=== PATIENT | male | born 1935 | race Caucasian/White ===

== ENCOUNTER 2018-12-25 04:07 | Observation (INO) ==
--- NOTE | 2018-12-25 04:23 | Emergency Department Note ---
Disposition Clinical Impression: Chest pain Qualifiers: Chest pain type: unspecified Qualified Code(s): R07.9 - Chest pain, unspecified Disposition: Admitted As Inpatient Condition: Good Referrals: Ritu Phillips DO [Primary Care Provider] - Forms: ED Satisfaction Letter Time of Disposition: 06:18 Chest Pain HPI - General Chief Complaint: ED Chest Pain Stated Complaint: chest pain Time Seen by Provider: 12/25/18 04:20 Source: patient, EMS Limitations: no limitations Vital Signs Reviewed: Yes Nursing Notes Reviewed: Yes - History of Present Illness Pt complaint: chest pain Onset (ago): Just [employer] Duration: other (improving) Onset: during rest ("trying to sleep") Pain Location: left chest Severity scale (1-10): 2 Quality: aching Pain Radiation: LUE, jaw/teeth Improves with: nitroglycerin Worsens with: nothing (Start on or bladder UA was present as chest pain is pain- free after tonight immediately to 1 is a wheezy) Associated symptoms: Reports: nausea, dyspnea. Denies: vomiting, diaphoresis Treatments prior to arrival chest pain: aspirin (at home), nitroglycerin (x2 via squad) - Related Data Home Medications Medication Instructions Recorded Confirmed Aspirin 325 mg PO DAILY 11/24/15 12/25/18 Losartan 50 mg PO DAILY 11/24/15 12/25/18 Clopidogrel 75 mg PO DAILY 02/26/18 12/25/18 Diltiazem 240 mg DAILY 02/26/18 12/25/18 Metoprolol 25 mg PO DAILY 02/26/18 12/25/18 Previous Rx's Medication Instructions Recorded Benzonatate [Tessalon] 100 mg PO TID #15 capsule 02/26/18 Cephalexin [Keflex] 500 mg PO TID #30 capsule 02/26/18 PredniSONE [Deltasone] 20 mg PO DAILY #12 tablet 02/26/18 Allergies Allergy/AdvReac Type Severity Reaction Status Date / Time No Known Allergies Allergy Verified 11/24/15 13:56 All systems ED: reviewed and negative except as stated. Review of Systems: As Per HPI Constitutional: Denies: fever, chills, weakness ENT ED: Denies: throat pain Cardiovascular: Reports: as per HPI Respiratory: Reports: cough, sputum production. Denies: wheezes, hemoptysis Gastrointestinal: Reports: as per HPI. Denies: abdominal pain Genitourinary: Denies: dysuria Musculoskeletal: Denies: back pain Integumentary: Denies: rash Neurological: Denies: weakness Endocrine: Denies: fatigue Hematological/Lymphatic: Denies: easy bleeding, lymphadenopathy Chest Pain PMH - Past Medical History Medical history: Reports: non-contributory, hyperlipidemia, hypertension Psychiatric history: Reports: no psych history - Social History Smoking Status: Current every day smoker Alcohol use: Reports: none Drug use: Reports: none Physical Exam - General Limitations: no limitations General appearance: alert, in no apparent distress - Head Head exam: atraumatic, normocephalic - Eye Eye exam: Present: EOMI - ENT ENT exam: mucous membranes moist - Neck Neck exam: Present: full ROM - Chest Chest inspection: Present: symmetric chest wall rise - Respiratory Respiratory exam: Present: wheezes. Absent: respiratory distress, accessory muscle use - Expanded Respiratory Exam Location: wheezes: Left, Right - Cardiovascular Cardiovascular exam: Present: regular rate - Abdominal Exam Abdominal exam: Present: soft, Non-Tender - Extremities Exam Extremities exam: Present: normal inspection, full ROM, normal capillary refill - Back Exam Back exam: Present: full ROM - Neurological Exam Neurological exam: Present: alert - Psychiatric Psychiatric exam: Present: normal affect, normal mood - Skin Skin exam: Present: warm, dry, intact, normal color. Absent: rash, cyanosis, diaphoresis Course Course Narrative: 83-year-old male smoker with known history of COPD who arrives via squad with complaint of chest pain and shortness of breath. He states that he was attempting to sleep and had worsened. He does describe having similar pain at night for the past month, but states that it is normally relieved after an aspirin in this had not. Does describe pain radiating into his left upper extremity and does drop. He did take an aspirin at home, and did receive nitroglycerin via squad and he now states that his pain has improved. He does describe some mild nausea earlier when the pain was occurring but he denies any vomiting. He describes an intermittent chronic cough and sputum production denies any worsening shortness of breath, worsening cough, fever, abdominal pain, leg swelling. Pt declines analgesics. Pt took 325mg ASA at home. Vitals within normal limits. EKG reviewed and compared to previous EKG in 2012, shows no acute changes. Pt on metoprolol diltiazem, describes irregular HR in the past, but currently HRRR. - Reevaluation(s) Reevaluation #1: Pt remains stable and pain free. CXR has some mild pulmonary vascular congestion, normal troponin, and blood work at his his base line. Pt discussed with attending Dr. Man who agreed with work up and disposition. Will plan for admission for ACS rule out. Time: 05:38 Reevaluation #2: Patient discussed with and accepted by hospitalist Dr. Zhong Time: 06:10 Vital Signs Temperature 97.9 F 12/25/18 04:09 Pulse Rate 71 12/25/18 04:09 Respiratory Rate 16 12/25/18 04:09 Blood Pressure 172/87 12/25/18 04:09 O2 Sat by Pulse Oximetry 96 12/25/18 04:09 Temperature 97.9 F 12/25/18 04:09 Pulse Rate 62 12/25/18 04:56 Respiratory Rate 17 12/25/18 04:56 Blood Pressure 160/76 12/25/18 04:56 O2 Sat by Pulse Oximetry 95 12/25/18 04:56 Oxygen Delivery Oxygen Delivery Room Air Chest Pain - MDM Narrative Medical decision making narrative: Chest X-Ray 12/25/18 04:20 IMPRESSION: 1. Mild pulmonary vascular congestion, slightly increased. D/ / Valdo Roberts MD / Valdo Roberts MD Interpreting Provider: Valdo Roberts MD Laboratory Tests 12/25/18 12/25/18 04:30 04:30 WBC 6.4 RBC 3.98 L Hgb 11.4 L Hct 33.5 L MCV 84.2 MCH 28.6 MCHC 34.0 RDW 16.0 H Plt Count 149 MPV 8.9 L Immature Gran % 0.5 Seg Neutrophils % 58.3 Lymphocytes % 26.9 Monocytes % 10.1 Eosinophils % 3.3 Basophils % 0.9 Neutrophils # 3.8 Lymphocytes # 1.7 Monocytes # 0.7 Eosinophils # 0.2 Basophils # 0.1 Sodium 130 L Potassium 4.3 Chloride 98 Carbon Dioxide 27 BUN 15 Creatinine 0.98 Est GFR ( Amer) > 60 Est GFR (Non-Af Amer) > 60 BUN/Creatinine Ratio 15 Glucose 115 H Calculated Osmolality 272 L Calcium 8.6 Troponin I 0.03 - Medical Records Medical records reviewed: Yes I reviewed the patient's medical records. - Lab Data Lab results reviewed: Yes I reviewed the patient's lab results. Result diagrams: 12/25/18 04:30 12/25/18 04:30 Lab Results 12/25/18 12/25/18 Range/Units 04:30 04:30 WBC 6.4 (4.3-11.1) K/mcL RBC 3.98 L (4.19-5.50) M/mcL Hgb 11.4 L (12.9-16.9) g/dL Hct 33.5 L (37.5-50.1) % MCV 84.2 (83.0-100.0) fL MCH 28.6 (28.0-33.3) pg MCHC 34.0 (31.6-35.5) g/dL RDW 16.0 H (11.5-14.5) % Plt Count 149 (140-400) K/mcL MPV 8.9 L (9.4-12.4) fL Immature Gran % 0.5 (0-4) % Seg Neutrophils % 58.3 % Lymphocytes % 26.9 % Monocytes % 10.1 % Eosinophils % 3.3 % Basophils % 0.9 % Neutrophils # 3.8 (1.6-8.9) K/mcL Lymphocytes # 1.7 (0.6-4.6) K/mcL Monocytes # 0.7 (0.0-1.3) K/mcL Eosinophils # 0.2 (0.0-0.6) K/mcL Basophils # 0.1 (0.0-0.2) K/mcL Sodium 130 L (136-145) mEq/L Potassium 4.3 (3.5-5.1) mEq/L Chloride 98 (98-107) mEq/L Carbon Dioxide 27 (23-29) mEq/L BUN 15 (8-23) mg/dL Creatinine 0.98 (0.70-1.30) mg/dL Est GFR ( Amer) > 60 (> 60) Est GFR (Non-Af Amer) > 60 (> 60) BUN/Creatinine Ratio 15 (6-26) Glucose 115 H (70-105) mg/dL Calculated Osmolality 272 L (280-300) Calcium 8.6 (8.6-10.3) mg/dL Troponin I 0.03 (< 0.04) ng/mL - Radiology Data Radiology results reviewed: Yes I reviewed the patient's radiology results. - EKG Data EKG attestation: Yes I reviewed and interpreted this EKG. EKG shows normal: sinus rhythm Rate: normal Rhythm: NSR [place]/QRS: normal When compared to previous EKG there are: no significant changes Interpretation: no acute changes, unchanged when compared to prior tracing (date) (10/15/2011) Heart Score - Score History: Moderately Suspicious EKG: Normal Age: Greater than 65 Risk Factors: Equal/Greater than 3 risk factor or history of atherosclerotic disease Troponin: Less than normal limit HEART Score Total: 5
--- NOTE | 2018-12-25 04:46 | Emergency Department Note ---
Disposition Clinical Impression: Chest pain Qualifiers: Chest pain type: unspecified Qualified Code(s): R07.9 - Chest pain, unspecified Disposition: Admitted As Inpatient Condition: Good Time of Disposition: 06:18 General Adult HPI - General Chief complaint: ED Chest Pain Stated complaint: chest pain Time Seen by Provider: 12/25/18 04:20 Source: patient, EMS Limitations: no limitations Nursing Notes Reviewed: Yes Vital Signs Reviewed: Yes - History of Present Illness Pain Scale: 2 - Related Data Home Medications Medication Instructions Recorded Confirmed Aspirin 325 mg PO DAILY 11/24/15 12/25/18 Losartan 50 mg PO DAILY 11/24/15 12/25/18 Clopidogrel 75 mg PO DAILY 02/26/18 12/25/18 Diltiazem 240 mg DAILY 02/26/18 12/25/18 Metoprolol 25 mg PO DAILY 02/26/18 12/25/18 Previous Rx's Medication Instructions Recorded Benzonatate [Tessalon] 100 mg PO TID #15 capsule 02/26/18 Cephalexin [Keflex] 500 mg PO TID #30 capsule 02/26/18 PredniSONE [Deltasone] 20 mg PO DAILY #12 tablet 02/26/18 Allergies Allergy/AdvReac Type Severity Reaction Status Date / Time No Known Allergies Allergy Verified 11/24/15 13:56 Constitutional: Denies: fever, chills, weakness ENT ED: Denies: throat pain Cardiovascular: Reports: as per HPI Respiratory: Reports: cough, sputum production. Denies: wheezes, hemoptysis Gastrointestinal: Reports: as per HPI. Denies: abdominal pain Genitourinary: Denies: dysuria Musculoskeletal: Denies: back pain Integumentary: Denies: rash Neurological: Denies: weakness Endocrine: Denies: fatigue Hematological/Lymphatic: Denies: easy bleeding, lymphadenopathy Past Medical History - Past Medical History Medical history: Reports: non-contributory, hyperlipidemia, hypertension Psychiatric history: Reports: no psych history - Social History Smoking Status: Current every day smoker Smokeless Tobacco Status: No Alcohol use: Reports: none Drug use: Reports: none Physical Exam - General Limitations: no limitations General appearance: alert, in no apparent distress Course Vital Signs Temperature 97.9 F 12/25/18 04:09 Pulse Rate 71 12/25/18 04:09 Respiratory Rate 16 12/25/18 04:09 Blood Pressure 172/87 12/25/18 04:09 O2 Sat by Pulse Oximetry 96 12/25/18 04:09 Temperature 97.9 F 12/25/18 04:09 Pulse Rate 62 12/25/18 04:56 Respiratory Rate 17 12/25/18 04:56 Blood Pressure 160/76 12/25/18 04:56 O2 Sat by Pulse Oximetry 95 12/25/18 04:56 Oxygen Delivery Oxygen Delivery Room Air Medical Decision Making - Medical Records Medical records reviewed: Yes I reviewed the patient's medical records. - Lab Data Lab results reviewed: Yes I reviewed the patient's lab results. Result diagrams: 12/25/18 04:30 12/25/18 04:30 Lab Results 12/25/18 12/25/18 Range/Units 04:30 04:30 WBC 6.4 (4.3-11.1) K/mcL RBC 3.98 L (4.19-5.50) M/mcL Hgb 11.4 L (12.9-16.9) g/dL Hct 33.5 L (37.5-50.1) % MCV 84.2 (83.0-100.0) fL MCH 28.6 (28.0-33.3) pg MCHC 34.0 (31.6-35.5) g/dL RDW 16.0 H (11.5-14.5) % Plt Count 149 (140-400) K/mcL MPV 8.9 L (9.4-12.4) fL Immature Gran % 0.5 (0-4) % Seg Neutrophils % 58.3 % Lymphocytes % 26.9 % Monocytes % 10.1 % Eosinophils % 3.3 % Basophils % 0.9 % Neutrophils # 3.8 (1.6-8.9) K/mcL Lymphocytes # 1.7 (0.6-4.6) K/mcL Monocytes # 0.7 (0.0-1.3) K/mcL Eosinophils # 0.2 (0.0-0.6) K/mcL Basophils # 0.1 (0.0-0.2) K/mcL Sodium 130 L (136-145) mEq/L Potassium 4.3 (3.5-5.1) mEq/L Chloride 98 (98-107) mEq/L Carbon Dioxide 27 (23-29) mEq/L BUN 15 (8-23) mg/dL Creatinine 0.98 (0.70-1.30) mg/dL Est GFR ( Amer) > 60 (> 60) Est GFR (Non-Af Amer) > 60 (> 60) BUN/Creatinine Ratio 15 (6-26) Glucose 115 H (70-105) mg/dL Calculated Osmolality 272 L (280-300) Calcium 8.6 (8.6-10.3) mg/dL Troponin I 0.03 (< 0.04) ng/mL - Radiology Data Radiology results reviewed: Yes I reviewed the patient's radiology results. Chest X-Ray 12/25/18 04:20 IMPRESSION: 1. Mild pulmonary vascular congestion, slightly increased. D/ / Valdo Roberts MD / Valdo Roberts MD Interpreting Provider: Valdo Roberts MD - EKG Data EKG #1 EKG attestation: Yes I reviewed and interpreted this EKG. EKG results narrative: EKG shows a normal sinus rhythm with ventricular rate is 73. No ST segment elevation. Mild ST segment depression in V3 through V5 which was also present on old EKG dated 12. No acute ischemic changes noted. No arrhythmia or ectopy. Attestation Statement - Attestation Attestation: I, Mukesh Man MD, personally evaluated this patient and discussed their management with the midlevel provicer, PAC/OUTCOMES MANAGER. I reviewed the midlevel provider's note and agree with the documented findings, medical decision making, and plan of care. 83-year-old male presents to the emergency department by EMS with a complaint of having intermittent left arm pains for the past month. He states it seems to be worse during the night. He usually takes an aspirin and gets up and drink some coffee and it goes away. The pain started tonight about midnight however tonight it radiated into the left chest. It did seem to be worse than usual and it was not relieved like usual. He was given 2 nitroglycerin per EMS with significant relief of the discomfort. He denies shortness of breath. No diaphoresis. He did have some nausea but no vomiting. No palpitations. No dizziness or syncope. 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 He also has history of a coronary artery stent. He took aspirin 325 mg at home. On examination patient is a well-developed well-nourished well-appearing elderly male in no acute distress. He is alert and oriented 3. There is no cyanosis or diaphoresis. Chest is nontender to palpation. Breath sounds are decreased bilaterally with some scattered expiratory wheezes, worse on the left. No rales noted. Heart regular rate and rhythm. Abdomen soft and nontender with normal bowel sounds. No pedal edema. EKG shows a normal sinus rhythm with ventricular rate is 73. No ST segment elevation. Mild ST segment depression in V3 through V5 which was also present on old EKG dated . No acute ischemic changes noted. No arrhythmia o r ectopy. Chest x-ray shows mild pulmonary vascular congestion. Labs reviewed. Troponin negative. The hospitalist, Dr. Zhong, was consulted and accepted admission of the patient.
[2018-12-25 04:49] LABS: Basophils # 0.1 K/mcL (0.0-0.2); Basophils % 0.9 %; Eosinophils # 0.2 K/mcL (0.0-0.6); Eosinophils % 3.3 %; Hematocrit 33.5 % (37.5-50.1); Hemoglobin 11.4 g/dL (12.9-16.9); Immature Granulocytes % 0.5 % (0-4); Lymphocytes # 1.7 K/mcL (0.6-4.6); Lymphocytes % 26.9 %; Mean Corpuscular Hemoglobin 28.6 pg (28.0-33.3); Mean Corpuscular Volume 84.2 fL (83.0-100.0); Mean Platelet Volume 8.9 fL (9.4-12.4); Monocytes # 0.7 K/mcL (0.0-1.3); Monocytes % 10.1 %; Neutrophils # 3.8 K/mcL (1.6-8.9); Platelet Count 149 K/mcL (140-400); Red Blood Count 3.98 M/mcL (4.19-5.50); Segmented Neutrophils % 58.3 %
[2018-12-25 05:07] LABS: BUN/Creatinine Ratio 15 (6-26); Blood Urea Nitrogen 15 mg/dL (8-23); Calcium 8.6 mg/dL (8.6-10.3); Carbon Dioxide 27 mEq/L (23-29); Chloride 98 mEq/L (98-107); Glucose 115 mg/dL (70-105); Osmolality,Calculated 272 (280-300); Potassium 4.3 mEq/L (3.5-5.1); Sodium 130 mEq/L (136-145); eGFR For Non-African Americans > 60 (> 60)
[2018-12-25 05:09] LABS: Troponin I 0.03 ng/mL (< 0.04)
--- NOTE | 2018-12-25 07:33 | Internal Med History&Physical ---
<Rei Llanes - Last Filed: 12/25/18 08:51> Date of Encounter: 12/25/18 Time of Encounter: 07:33 Internal Medicine - H&P: HPI Chief complaint: Chest pain Admitted From: Emergency Dept History of present illness: Mr. Ram is a 83 year old male with past medical history of hypertension, hyperlipidemia, tobacco dependence, PAD, and CAD status post cardiac stents and CABG who presented to the ED complaining of left-sided chest pain radiating to his left upper extremity at rest. Chest pain is a dull pressure-like sensation waxing and waning in severity during the past couple of weeks. Nothing makes his chest pain better or worse. Patient had associated nausea upon this morning upon awakening this morning which caused him to come to the ED. He denies associated fever, chills, diaphoresis, shortness of breath, cough, vomiting, diarrhea, leg edema, or recent illness. Patient reports compliance with his Aspirin and Plavix. 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 In the ED, CXR revealed mild pulmonary vascular congestion. Initial serum troponin was negative and EKG revealed Heart rate 73, normal axis, lateral lead ST depressions greatest in V4. Previous EKG from [address] depression in V4 and V5. Prior cardiac testing: [facility] October of 2011 showed LV ejection fraction of 40% with moderate to severe in ferobasal hypokinesis. 100% proximal LAD, 100% proximal circumflex and 100% mid RCA occlusions. HOFFMAN to LAD was patent, SVG to OM1 was occluded, SVG to first diagonal was patent, SVG to RCA was occluded with a thrombus and was felt to be the culprit vessel. The SVG to RCA was then stented with a drug-eluting stent. Past Med Surg Social Fam HX - Past Medical History Medical history: arthritis, cancer (Prostate), hyperlipidemia, hypertension Additional medical history: Borderline anemia Psychiatric history: no psych history - Past Surgical History Surgical History: angioplasty/stent, coronary bypass (CABG) (2000) - Social History Smoking Status: Current every day smoker Smokeless Tobacco Status: No Alcohol use: none Drug use: none Current living situation: Home, With Family - Family History Mother Living Status: Hx Family Neurologic Disorders: Yes (Alzheimer's Dementia) Father Living Status: Hx Family Cardiac Disorders: Yes (Hypertension) Internal Medicine - H&P: Meds Aspirin 325 mg PO DAILY 12/25/18 [History] Atorvastatin Calcium [Lipitor] 20 mg PO QPM 12/25/18 [History] Clopidogrel [Plavix] 75 mg PO DAILY 12/25/18 [History] Losartan Potassium 50 mg PO DAILY 12/25/18 [History] Metoprolol Succinate [Toprol Xl] 25 mg PO DAILY 12/25/18 [History] dilTIAZem HCl [Diltiazem ER] 240 mg PO DAILY 12/25/18 [History] Allergy/AdvReac Type Severity Reaction Status Date / Time No Known Allergies Allergy Verified 11/24/15 13:56 All Systems PM: A 10-system review of systems was performed and is negative for pertinent findings except as documented above in the HPI. - Constitutional Constitutional: no chills, no fever(s), no weakness - EENT Eyes: no blurry vision, no diplopia Nose, mouth and throat: no sinus pain, no sore throat - Cardiovascular Cardiovascular ROS IM: chest pain, no dyspnea, no dyspnea on exertion, no edema, no irregular heart rhythm, no orthopnea, no palpitations, no syncope - Respiratory Respiratory: no cough, no wheezing, no chest congestion - Gastrointestinal Gastrointestinal: nausea, no abdominal pain, no diarrhea, no vomiting - Genitourinary Genitourinary ROS male: no urinary frequency, no urinary urgency - Musculoskeletal Musculoskeletal ROS IM: myalgias, tingling, no numbness - Integumentary Integumentary IM: no erythema, no rash - Neurological Neurological ROS: tingling, no numbness, no weakness - Psychiatric Psychiatric: no anxiety, no depression - Endocrine Endocrine IM: no polydipsia, no polyphagia, no polyuria - Constitutional Vitals: Temp Pulse Resp BP Pulse Ox 97.9 F 62 17 160/76 95 12/25/18 04:09 12/25/18 04:56 12/25/18 04:56 12/25/18 04:56 12/25/18 04:56 General appearance: Present: cooperative, mild distress, A&O X 3, pleasant, answers questions appropriately Exam: Awake - Head Head exam: Present: atraumatic, normocephalic - Eye Eye exam: Present: EOMI, conjuntiva pink, sclera anicteric - ENT ENT exam: Present: mucous membranes moist, normal oropharynx - Neck Neck exam general surgery: Present: supple, trachea midline - Respiratory Respiratory exam: Present: CTAB. Absent: accessory muscle use, rales, rhonchi, wheezes Additional comments: Barrel chest deformity - Cardiovascular Cardiovascular exam: Present: RRR, +S1, +S2. Absent: diastolic murmur, gallop, rubs, systolic murmur - GI/Abdominal GI/Abdominal exam: Present: normal bowel sounds, soft, no peritoneal signs. Absent: distended, tenderness - Extremities Exam Extremities exam: Present: full ROM, normal inspection, warm, radial pulses palpable and symmetrical. Absent: calf tenderness, cyanotic, pedal edema, tenderness - Back Exam Back exam: Present: normal inspection. Absent: paraspinal tenderness, tenderness - Neurological Exam Neurological exam: Present: CN II-XII intact, oriented X3, no focal deficits. Absent: facial droop, speech deficit - Psychiatric Psychiatric exam: Present: normal affect, normal mood - Skin Skin exam: Present: dry, intact, warm Internal Med - H&P Results - Labs CBC & Chem 7: 12/25/18 04:30 12/25/18 04:30 Labs: Short CBC 12/25/18 Range/Units 04:30 WBC 6.4 (4.3-11.1) K/mcL Hgb 11.4 L (12.9-16.9) g/dL Hct 33.5 L (37.5-50.1) % Plt Count 149 (140-400) K/mcL Neutrophils # 3.8 (1.6-8.9) K/mcL BMP 12/25/18 04:30 Sodium 130 L Potassium 4.3 Chloride 98 Carbon Dioxide 27 BUN 15 Creatinine 0.98 Glucose 115 H Calcium 8.6 Cardiac Enzymes 12/25/18 Range/Units 04:30 Troponin I 0.03 (< 0.04) ng/mL - Pulse Oximetry Interpretation Digit-Finger O2 Sat by Pulse Oximetry: 95 (On ambient air) - EKG Data -: EKG Interpreted by Myself EKG shows normal: sinus rhythm (Heart rate 73, normal axis, lateral lead ST depressions greatest in V4), axis, intervals Rate: normal - EKG Data Prior EKG available for review: yes When compared to previous EKG: there are significant changes (EKG from [address] depression in V4 and V5) - Impressions ITS Impressions Chest X-Ray 12/25/18 04:20 IMPRESSION: 1. Mild pulmonary vascular congestion, slightly increased. D/ / Valdo Roberts MD / Valdo Roberts MD Interpreting Provider: Valdo Roberts MD - Assessment and Plan (1) Chest pain Current Visit: Yes Status: Acute Assessment and plan: 83-year-old male with CAD and multiple cardiac risk factors (age, hypertension, prior CABG/stents, PAD, tobacco dependence, positive family history) presents with left sided chest pain radiating to his left arm. Chest pain improved with nitroglycerin. EKG revealed Heart rate 73, normal axis, lateral lead ST depressions greatest in V4. Previous EKG from [address] depression in V4 and V5. [facility] October of 2011 showed LV ejection fraction of 40% with moderate to severe inferobasal hypokinesis. 100% proximal LAD, 100% proximal circumflex and 100% mid RCA occlusions. HOFFMAN to LAD was patent, SVG to OM1 was occluded, SVG to first diagonal was patent, SVG to RCA was occluded with a thrombus and was felt to be the culprit vessel. The SVG to RCA was then stented with a drug-eluting stent. Continue aspirin, Plavix, and beta angeles. Initial serum troponin was negative, trend serial troponins. NPO. Cardiology consulted, appreciate their recommendations. Qualifiers: Chest pain type: unspecified Qualified Code(s): R07.9 - Chest pain, unspecified (2) CAD (coronary artery disease) Current Visit: Yes Status: Acute Assessment and plan: [facility] October of 2011 showed LV ejection fraction of 40% with moderate to severe inferobasal hypokinesis. 100% proximal LAD, 100% proximal circumflex and 100% mid RCA occlusions. HOFFMAN to LAD was patent, SVG to OM1 was occluded, SVG to first diagonal was patent, SVG to RCA was occluded with a thrombus and was felt to be the culprit vessel. The SVG to RCA was then stented with a drug-eluting stent. Continue aspirin, Plavix, and beta angeles. Qualifiers: Coronary Disease-Associated Artery/Lesion type: [place] artery [place] vs. transplanted heart: [place] heart Associated angina: with unspecified angina Qualified Code(s): I25.119 - Atherosclerotic heart disease of [place] coronary artery with unspecified angina pectoris (3) HTN (hypertension) Current Visit: Yes Status: Acute Assessment and plan: Blood pressure elevated 160/76, patient has not taken his meds this morning. Resume home meds. Continue monitoring Qualifiers: Hypertension type: unspecified Qualified Code(s): I10 - Essential (primary) hypertension (4) HLD (hyperlipidemia) Current Visit: Yes Status: Chronic Assessment and plan: Lipid panel pending Initiate statin Qualifiers: Hyperlipidemia type: unspecified Qualified Code(s): E78.5 - Hyperlipidemia, unspecified (5) Tobacco dependence Current Visit: Yes Status: Chronic Assessment and plan: Tobacco cessation discussed. (6) DVT prophylaxis Current Visit: Yes Status: Acute Assessment and plan: Heparin subcutaneous TID - Time Spent With Patient Total time spent is greater than 50% in coordination of care (as documented) at patient's floor/unit and/or counseling patient: <Ethel Lloyd - Last Filed: 12/26/18 22:14> Date of Encounter: 12/25/18 Internal Medicine - H&P: HPI History of present illness: Mr. Ram is a 83 year old male All Systems PM: A 10-system review of systems was performed and is negative for pertinent findings except as documented above in the HPI. - Constitutional Vitals: Temp Pulse Resp BP Pulse Ox 97.6 F 75 17 142/84 94 12/26/18 19:48 12/26/18 20:48 12/26/18 20:48 12/26/18 20:48 12/26/18 20:52 Internal Med - H&P Results - Labs CBC & Chem 7: 12/26/18 00:14 12/26/18 00:14 Labs: Short CBC 12/26/18 Range/Units 00:14 WBC 7.0 (4.3-11.1) K/mcL Hgb 11.3 L (12.9-16.9) g/dL Hct 32.8 L (37.5-50.1) % Plt Count 156 (140-400) K/mcL BMP 12/26/18 00:14 Sodium 133 L Potassium 4.0 Chloride 95 L Carbon Dioxide 24 BUN 11 Creatinine 0.86 Glucose 109 H Calcium 8.8 - Impressions ITS Impressions Chest X-Ray 12/25/18 04:20 IMPRESSION: 1. Mild pulmonary vascular congestion, slightly increased. D/ / Valdo Roberts MD / Valdo Roberts MD Interpreting Provider: Valdo Roberts MD Echocardiogram 12/25/18 14:37 Impressions: LVEF 40-45%. Mildly dilated left ventricle. Segmental left ventricular systolic dysfunction. Mild left ventricular diastolic dysfunction. Normal right ventricular structure and function. Mild aortic regurgitation. Mild mitral regurgitation. No evidence of pulmonary hypertension. Mild pulmonic regurgitation. Left Ventricular Wall Motion: Rest Echo Findings The mid inferior, basal inferior, mid inferior lateral and basal inferior lateral be were hypokinetic. All other wall segments showed normal motion. Findings: Study Quality * Technically sub-optimal due to poor echocardiographic windows. ECG Findings * Normal sinus rhythm. Left Ventricle * LVEF 40-45%. * Mildly dilated left ventricle. * Segmental left ventricular systolic dysfunction. * Mild left ventricular diastolic dysfunction. Right Ventricle * Normal right ventricular structure and function. Left Atrium * Mild to moderately dilated left atrium. Right Atrium * Mildly dilated right atrium. Interatrial Septum * Interatrial septum not well evaluated. Aortic Valve * Trileaflet aortic valve. * Mildly calcified aortic valve leaflets, especially the left coronary cusp, which is somewhat fixed. * Mild aortic regurgitation. * No aortic stenosis. Mitral Valve * Mild mitral annular calcification. * Mild mitral regurgitation. * No mitral stenosis. Tricuspid Valve * Normal tricuspid valve structure and function. * Trace tricuspid regurgitation. * No evidence of pulmonary hypertension. Pulmonic Valve * Pulmonic valve not well visualized. * Mild pulmonic regurgitation. Aorta * Normally sized aortic root. Pericardium * The pericardium appears normal. IVC * Normal IVC dimensions and inspiratory collapse. Pulmonary Artery * Normal visualized portions of the main pulmonary artery. - Assessment and Plan (1) Chest pain Current Visit: Yes Status: Acute Qualifiers: Chest pain type: unspecified Qualified Code(s): R07.9 - Chest pain, unspecified (2) CAD (coronary artery disease) Current Visit: Yes Status: Acute Qualifiers: Coronary Disease-Associated Artery/Lesion type: [place] artery [place] vs. transplanted heart: [place] heart Associated angina: with unspecified angina Qualified Code(s): I25.119 - Atherosclerotic heart disease of [place] coronary artery with unspecified angina pectoris (3) Tobacco dependence Current Visit: Yes Status: Chronic (4) DVT prophylaxis Current Visit: Yes Status: Acute (5) HTN (hypertension) Current Visit: Yes Status: Acute Qualifiers: Hypertension type: unspecified Qualified Code(s): I10 - Essential (primary) hypertension (6) HLD (hyperlipidemia) Current Visit: Yes Status: Chronic Qualifiers: Hyperlipidemia type: unspecified Qualified Code(s): E78.5 - Hyperlipidemia, unspecified - Time Spent With Patient Total time spent is greater than 50% in coordination of care (as documented) at patient's floor/unit and/or counseling patient: - Attending Attestation I personally and independently interviewed and examined the patient, and I reviewed the patient's medical records. I am in agreement with the assessment and proposed treatment plan. I discussed my findings and recommendation with the patient and answer his questions. The patient's medical records were edited to accurately reflect this encounter.
[2018-12-25] MEDS ORDERED: Acetaminophen 325 MG TABLET PO PRN (08:11)
[2018-12-25] MEDS ORDERED: Nitroglycerin 0.4 MG TAB.SUBL SL PRN (08:11)
[2018-12-25] MEDS ORDERED: Aspirin 325 MG TABLET PO ONE (08:11)
[2018-12-25] MEDS ORDERED: Ondansetron 4 MG/2 ML VIAL IVP PRN (08:11)
[2018-12-25] MEDS ORDERED: Naloxone 0.4 MG/ML INJ IVP PRN (08:11)
[2018-12-25] MEDS ORDERED: *HR* Morphine 2 MG/ML SYRINGE IVP PRN (08:11)
[2018-12-25 08:57] LABS: Chol/HDL Ratio 2.6 (0-4.9); Cholesterol 134 mg/dL (< 200); HDL Cholesterol 51 mg/dL (40-59); LDL Cholesterol,Calculated 69 mg/dL (0-99); Magnesium 1.9 mg/dL (1.6-2.6); Triglycerides 71 mg/dL (< 150)
[2018-12-25] MEDS ORDERED: ASPIRIN 325 MG PO SCH (09:00)
--- NOTE | 2018-12-25 09:36 | Electrocardiograph Report ---
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
[2018-12-25] MEDS: Diltiazem CD (24hr) 240 MG CAPSULE PO SCH (10:35)
[2018-12-25] MEDS: Metoprolol XL (24 HR) Succ 25 MG TAB.ER.24H PO SCH (10:35)
[2018-12-25 11:25] LABS: INR 1.1
--- NOTE | 2018-12-25 13:33 | Cardiology Consult Note ---
<Brett Harris - Last Filed: 12/25/18 15:54> Date of Encounter: 12/25/18 Time of Encounter: 14:00 Assessment and Plan (1) Chest pain Current Visit: Yes Status: Acute -Patient presents to the ED with intermittent chest pain for the past few days -He was given nitroglycerin in the ED which helped resolved the chest pain. -EKG was negative for any ST-T changes, heart strain/block, Brugada, WPW. He did lateral lead ST depressions greatest in T4 on his first EKG. Repeat EKG showed resolution of those changes -Troponin currently uptrending to 0.09 - patient currently not in chest pain when i saw him. PLAN: - with his uptrending trops will start him on Heparin gtt - Echocardiogram pending -Given his extensive history of a CABG along with placement of drug-eluting stent patient might benefit from a diagnostic LHC in the near future if patient and family is in agreement with the plan. Qualifiers: Chest pain type: unspecified Qualified Code(s): R07.9 - Chest pain, unspecified (2) CAD (coronary artery disease) Current Visit: Yes Status: Acute -Patient had a Hx of of triple-vessel coronary disease -His last heart catheterization was in October 2011 which showed an LV ejection fraction of 40% with moderate to severe inferobasal hypokinesis. It also showed 100% proximal LAD, 100% mild RCA occlusions. HOFFMAN to LAD was patent, SVG to OM1 was occluded, SVG to first diagonal was patent, SVG to RCA was occluded with a thrombus and was felt to be the culprit vessel. The SVG to RCA was then stented with a drug-eluting stent with good outcome. - Patient has all the risk factors of predisposes him to CAD like smoker with pack a day/45 yrs, history of hyperlipidemia, hypertension, -Patient has not seen a rewinder since his LHC in - patient will continue with optimal medical management on aspirin, Plavix and beta [place] Qualifiers: Coronary Disease-Associated Artery/Lesion type: [place] artery [place] vs. transplanted heart: [place] heart Associated angina: with unspecified angina Qualified Code(s): I25.119 - Atherosclerotic heart disease of [place] coronary artery with unspecified angina pectoris Discussion w patient/family: The assessment and plan as outlined above was discussed with the patient and/or family members who expressed understanding and agreement. All questions were answered. Thank you for involving us in the care of your patient. Please call with any questions. History of Present Illness Consult date: 12/25/18 History of present illness: Mr. Ram is a 83 year old male with a past medical history of hypertension, hyperlipidemia, PAD, CAD status post Quadruple bypass surgery in 2000 and drug eluting stent in the saphenous vein graft in the right coronary artery in 2011, who presents to the ED because of episodes of shortness of breath for the last couple weeks. Patient endorses that he was able to do majority of ADLs until the last 2-3 weeks when he began to very winded when he ambulated from his bed to the restroom, was unable to sustain his breath when he walks 2 blocks down. He denies any paroxysmal nocturnal dyspnea, orthopnea or swelling in the legs. He does have history of emphysema and extensive smoking history but denies any worsening productive cough or increase in frequency of cough. Patient also endorses chest pain when he is laying on the bed and also complains of having a left-sided non-radiating non-positional chest pain that wakes him up from sleep. This happened multiple times in the last 3 weeks. Patient also endorses episodes of fatigue and somnolence over the last couple weeks. Patient is compliant on his DAPT and also takes metoprolol , lisinopril and diltiazem for his hypertension. He has not seen a rewinder ever since he had his stents placed which was 7 years ago. On the talking to his family it appears to me that patient has not seen his primary care doctor in a while. Initial workup in the ED showed pulmonary vascular condition on CXR. Initial troponin was normal but the repeat troponin is up trending to 0.09. EKG was negative for any elevation, there was mild ST segment depression in V3 to V5 she was also present in all EKG dated 10/14/2020. Repeat EKG this morning showed R: 67, normal axis, QTc at the higher end of normal : 449, but no evidence of any ST-T changes. Patient was admitted to the hospital for ACS rule out. Past Med Surg Social Fam HX - Past Medical History Medical history: arthritis, cancer (Prostate), hyperlipidemia, hypertension Additional medical history: Borderline anemia Psychiatric history: no psych history - Past Surgical History Surgical History: angioplasty/stent, coronary bypass (CABG) (2000) - Social History Smoking Status: Current every day smoker Smokeless Tobacco Status: No Alcohol use: none Drug use: none - Family History Mother Living Status: Hx Family Neurologic Disorders: Yes (Alzheimer's Dementia) Father Living Status: Hx Family Cardiac Disorders: Yes (Hypertension) Medications and Allergies Aspirin 325 mg PO DAILY 12/25/18 [History] Atorvastatin Calcium [Lipitor] 20 mg PO QPM 12/25/18 [History] Clopidogrel [Plavix] 75 mg PO DAILY 12/25/18 [History] Losartan Potassium 50 mg PO DAILY 12/25/18 [History] Metoprolol Succinate [Toprol Xl] 25 mg PO DAILY 12/25/18 [History] dilTIAZem HCl [Diltiazem ER] 240 mg PO DAILY 12/25/18 [History] Allergy/AdvReac Type Severity Reaction Status Date / Time No Known Allergies Allergy Verified 11/24/15 13:56 All Systems Review: The remainder of the systems were reviewed and are negative - Constitutional Constitutional: fatigue, no chills, no fever(s) - Cardiovascular Cardiovascular: chest pain with exertion - Gastrointestinal Gastrointestinal: no abdominal pain Physical Examination Vital Signs, Last 4 Hours Temp Pulse Resp BP Pulse Ox 12/25/18 11:49 97.8 F 69 16 152/78 92 Other: Gen.: Vitals noted. No acute distress. Alert, awake and oriented * [address], [address], and time, well developed, well-nourished resting comfortably in bed. Pleasant. HEENT: oropharynx clear, Normocephalic, atraumatic, MMM Neck: supple, no JVD, no lymphadenopathy, no carotid bruit. Cardiac: RRR, no murmur, +S1/S2, No BLE edema, PMI non-displaced Pulmonary: CTA bilaterally, no wheezes, rales or rhonchi, equal chest expansion, unlabored breathing Abdomen: soft, nontender, BS noted, no guarding, non- distended. No o rganomegaly, no pulsatile masses, Skin: warm and dry, no visible lesions. Feels warm, clammy, no rashes, no lesions, no erythema MSK: ROM not assessed. no joint swelling noted, gait not assessed while in bed. Non tender calf or clubbing, no cyanosis/clubbing/ or edema Neuro: A&O, moves all extremities, no focal deficits, sensation intact Psych: Appropriate mood and behavior, normal speech, Results 12/25/18 04:30 12/25/18 04:30 Lab Results 12/25/18 12/25/18 12/25/18 04:30 04:30 10:25 WBC 6.4 Hgb 11.4 L Hct 33.5 L Plt Count 149 INR 1.1 Sodium 130 L Potassium 4.3 Chloride 98 Carbon Dioxide 27 BUN 15 Creatinine 0.98 Glucose 115 H Calcium 8.6 Magnesium 1.9 Troponin I 0.03 12/25/18 10:25 WBC Hgb Hct Plt Count INR Sodium Potassium Chloride Carbon Dioxide BUN Creatinine Glucose Calcium Magnesium Troponin I 0.09 H* Consult Discharge Plan - Plan Referrals: Ritu Phillips DO [Primary Care Provider] - <Yudy Reyes - Last Filed: 12/26/18 17:11> Date of Encounter: 12/26/18 - Attending Attestation I examined this patient and my medical decision-making was reviewed with the Resident Physician. I agree with the documented findings, disposition and treatment plan. See Cardiology Event Note. Assessment and Plan Discussion w patient/family: The assessment and plan as outlined above was discussed with the patient and/or family members who expressed understanding and agreement. All questions were answered. Thank you for involving us in the care of your patient. Please call with any questions. History of Present Illness History of present illness: Mr. Ram is a 83 year old male All Systems Review: The remainder of the systems were reviewed and are negative Physical Examination Vital Signs, Last 4 Hours Pulse BP Pulse Ox 12/26/18 17:00 74 164/83 92 Results 12/26/18 00:14 12/26/18 00:14 Lab Results 12/26/18 12/26/18 00:14 00:14 WBC 7.0 Hgb 11.3 L Hct 32.8 L Plt Count 156 Sodium 133 L Potassium 4.0 Chloride 95 L Carbon Dioxide 24 BUN 11 Creatinine 0.86 Glucose 109 H Calcium 8.8
[2018-12-25] MEDS ORDERED: *HR* Heparin 5,000 UNIT/ML VIAL SQ SCH (14:00)
--- NOTE | 2018-12-25 15:13 | Event Note ---
Date of Encounter: 12/25/18 Time of Encounter: 15:06 - Cardiology Event Note Let this note serve as [employer] attestation. Mr. Ram presents to the hospital with chest discomfort that started a few weeks ago. Described as a pressure, left sided radiating to left arm occurring when laying down at nighttime that comes and goes. States this occurring this morning prompting ER evaluation. At the bedside the patient is in NAD and chest pain free. AAOx3 on exam, NAD No appreciable cardiac murmur, normal S1/S2, no gallop or rub Chest pain not reproducible by palpation Normal breath sounds Radial pulses 2+ equal, diminished LLE pulses No LE edema Impression/Plan: 1. Chest pain: Atypical chest pain while laying down at nighttime. Denies exertional pain but endorses YANEZ that is chronic. Initial troponin negative. Second troponin 0.09. ECG reviewed and compared to ECG from 2012 - nonspecific ST-T abnormalities do not appear new. Discussed options with patient including LHC vs conservative management. Await troponin trend and Echo evaluation. Consider LHC tomorrow pending patient decision and data. Recommend heparin gtt for now. 2. CAD: Known CAD s/p CABG. Most recent LHC 2011 demonstrated severe hoopa vessel disease, occluded SVG to OM. Continue antiplatelet therapy, statin, BB.
[2018-12-25] MEDS ORDERED: *HR* Heparin 5,000 UNIT/ML VIAL IVP ONE (15:36)
[2018-12-25] MEDS ORDERED: *HR* Heparin 5,000 UNIT/ML VIAL IVP PRN ×2 (15:36)
[2018-12-25 16:18] LABS: Hemoglobin 12.7 g/dL (12.9-16.9); Mean Corpuscular HGB Conc 34.3 g/dL (31.6-35.5); Mean Corpuscular Hemoglobin 28.8 pg (28.0-33.3); Mean Corpuscular Volume 83.9 fL (83.0-100.0); Mean Platelet Volume 9.4 fL (9.4-12.4); Platelet Count 168 K/mcL (140-400); Red Blood Count 4.41 M/mcL (4.19-5.50)
[2018-12-25 16:25] LABS: Heparin anti-factor XA UFH 0.02 IU/mL (0.30-0.70); INR 1.1
[2018-12-25] MEDS: Heparin 25,000 UNIT/250 ML D5W 25,000 UNIT/250 ML IV.SOLN IVC SCH (17:42)
[2018-12-25] MEDS ORDERED: Perflutren Lipid Microsphere 1.3 ML in 0.9 % Sodium Chloride 8.7 ML IVP ONE (18:20)
[2018-12-26 00:48] LABS: Hematocrit 32.8 % (37.5-50.1); Hemoglobin 11.3 g/dL (12.9-16.9); Mean Corpuscular HGB Conc 34.5 g/dL (31.6-35.5); Mean Corpuscular Hemoglobin 28.7 pg (28.0-33.3); Mean Corpuscular Volume 83.2 fL (83.0-100.0); Mean Platelet Volume 9.6 fL (9.4-12.4); Platelet Count 156 K/mcL (140-400); Red Blood Count 3.94 M/mcL (4.19-5.50); Red Cell Distribution Width 15.9 % (11.5-14.5)
[2018-12-26 01:26] LABS: BUN/Creatinine Ratio 13 (6-26); Blood Urea Nitrogen 11 mg/dL (8-23); Calcium 8.8 mg/dL (8.6-10.3); Carbon Dioxide 24 mEq/L (23-29); Chloride 95 mEq/L (98-107); Glucose 109 mg/dL (70-105); Osmolality,Calculated 276 (280-300); Sodium 133 mEq/L (136-145); eGFR For Non-African Americans > 60 (> 60)
--- NOTE | 2018-12-26 08:25 | Internal Med Progress Note ---
Hospitalist Progress Note - Encounter Date of Encounter: 12/26/18 Time of Encounter: 08:20 - Subjective Interval History: Admitted for chest pain and elevated troponins. Cardiac cath planned for today - Exam Vitals: Temp Pulse Resp BP Pulse Ox 97.8 F 54 16 133/67 93 12/26/18 07:15 12/26/18 07:15 12/26/18 07:15 12/26/18 07:15 12/26/18 07:15 Exam: General appearance: Present: A&O X 3, no acute distress Head exam: Present: normocephalic Respiratory exam: Present: CTAB. Absent: accessory muscle use, rales, rhonchi, wheezes Cardiovascular exam: Present: RRR, +S1, +S2. Absent: diastolic murmur, gallop, rubs, systolic murmur GI/Abdominal exam: Soft, NT, ND, +BS Extremities exam: Absent: pedal edema Neurological exam: Present: alert, oriented X3, no focal deficits. Absent: altered - Assessment and Plan (1) Chest pain Current Visit: Yes Status: Acute Assessment and Plan: Pt comes in with left sided chest pain and has risk factors for CAD Troponins have been trending up. Continue heparin drip, aspirin and plavix. Echo showed LVEF of 40-45% Cardiology following and plan for left heart cath today (2) CAD (coronary artery disease) Current Visit: Yes Status: Acute Assessment and Plan: See #1 . Scheduled for cardiac cath Continue aspirin, Plavix, and beta angeles. (3) Tobacco dependence Current Visit: Yes Status: Chronic Assessment and Plan: Tobacco cessation discussed. (4) HTN (hypertension) Current Visit: Yes Status: Acute Assessment and Plan: Blood pressure elevated 160/76, patient has not taken his meds this morning. Resume home meds. Continue monitoring (5) HLD (hyperlipidemia) Current Visit: Yes Status: Chronic Assessment and Plan: Lipid panel pending Initiate statin (6) DVT prophylaxis Current Visit: Yes Status: Acute Assessment and Plan: Heparin subcutaneous TID - Time Spent with Patient Total time spent is greater than 50% in coordination of care (as documented) at patient's floor/unit and/or counseling patient: Internal Medicine: Result - Labs CBC & Chem 7: 12/26/18 00:14 12/26/18 00:14 Labs: Short CBC 12/25/18 12/26/18 Range/Units 15:50 00:14 WBC 7.9 7.0 (4.3-11.1) K/mcL Hgb 12.7 L 11.3 L (12.9-16.9) g/dL Hct 37.0 L 32.8 L (37.5-50.1) % Plt Count 168 156 (140-400) K/mcL BMP 12/25/18 12/26/18 04:30 00:14 Sodium 130 L 133 L Potassium 4.3 4.0 Chloride 98 95 L Carbon Dioxide 27 24 BUN 15 11 Creatinine 0.98 0.86 Glucose 115 H 109 H Calcium 8.6 8.8 Cardiac Enzymes 12/25/18 12/25/18 12/25/18 Range/Units 04:30 10:25 15:50 Troponin I 0.03 0.09 H* 0.41 H* (< 0.04) ng/mL - ABG Interpretation ABG results: PT/INR, D-dimer PT 12.0 Seconds (9.4-12.1) 12/25/18 15:50 Consult Discharge Plan - Plan Referrals: Ritu Phillips DO [Primary Care Provider] - (1) Chest pain Qualifiers: Chest pain type: unspecified Qualified Code(s): R07.9 - Chest pain, unspecified (2) CAD (coronary artery disease) Qualifiers: Coronary Disease-Associated Artery/Lesion type: [place] artery [place] vs. transplanted heart: [place] heart Associated angina: with unspecified angina Qualified Code(s): I25.119 - Atherosclerotic heart disease of [place] coronary artery with unspecified angina pectoris (4) HTN (hypertension) Qualifiers: Hypertension type: unspecified Qualified Code(s): I10 - Essential (primary) hypertension (5) HLD (hyperlipidemia) Qualifiers: Hyperlipidemia type: unspecified Qualified Code(s): E78.5 - Hyperlipidemia, unspecified
[2018-12-26] MEDS ORDERED: Aspirin 81 MG TAB.CHEW PO SCH (09:00)
[2018-12-26] MEDS ORDERED: Aspirin 325 MG TABLET PO SCH (09:00)
[2018-12-26] MEDS: Diltiazem CD (24hr) 240 MG CAPSULE PO SCH (10:15)
--- NOTE | 2018-12-26 10:28 | Event Note ---
Date of Encounter: 12/26/18 Time of Encounter: 10:25 - Cardiology Event Note Stopped by patient room to discuss updated data with the patient. His troponin continued to elevate. Echo results have not returned. However, preliminarily LVEF approximately 45% (previously 40% by LHC 2011 followed by 50-55% by Echo). Discussed options with patient including LHC vs medical management. The patient would like to proceed with LHC. The R/B/A of the procedure were again discussed. He accepts potential risks and wants to proceed.
[2018-12-26] MEDS: Metoprolol XL (24 HR) Succ 25 MG TAB.ER.24H PO SCH (10:37)
[2018-12-26] MEDS ORDERED: Heparin 1,000 UNITS/500 mL 500 ML ONE (15:02)
[2018-12-26] MEDS ORDERED: 0.9 % Sodium Chloride 1,000 ML ONE (15:02)
[2018-12-26] MEDS ORDERED: ISOVUE-370 200 ML INFUS..BTL ONE (15:02)
[2018-12-26] MEDS ORDERED: *HR* Heparin 10,000 UNIT/10 ML VIAL ONE (15:02)
[2018-12-26] MEDS ORDERED: Nitroglycerin 1,000 MCG/10 ML VIAL IV ONE (15:03)
[2018-12-26] MEDS ORDERED: *HR* FentaNYL (PF) 100 MCG/2 ML VIAL ONE ×2 (15:10→16:24)
[2018-12-26] MEDS ORDERED: *HR* Midazolam HCl 2 MG/2 ML VIAL ONE (15:10)
--- NOTE | 2018-12-26 15:18 | Pre-Sedation Evaluation ---
Pre-sedation evaluation - Pre-sedation checklist Date of procedure: 12/26/18 Procedure: LHC Recent Vitals: Last Vital Signs Temp 98.1 F 12/26/18 11:29 Pulse 54 12/26/18 11:29 Resp 14 12/26/18 11:29 BP 125/65 12/26/18 11:29 Pulse Ox 92 12/26/18 11:29 H&P (including ROS) documented in medical record: Yes Previous reaction to sedatives/anesthetics: No Dietary Status: NPO after Midnight ASA Classification *see protocol: CLASS II-Mild systemic disease Cardiac Registry (Cardio Only) - Functional Capacity Functional Capacity: >=4 METS without symptoms - Clincal Frailty Scale Clinical Frailty Scale: Vulnerable
--- NOTE | 2018-12-26 16:13 | Event Note ---
Date of Encounter: 12/26/18 Time of Encounter: 16:15 - Cardiology Event Note Per Dr. Reeves, patent HOFFMAN to LAD. Discussed with Dr. Reyes, on statin, Plavix, aspirin, beta angeles, ARB, adding long-acting nitrate. Cardiology signoff, reconsult as needed, follow-up arranged. Discontinue heparin drip.
[2018-12-26] MEDS: Heparin 25,000 UNIT/250 ML D5W 25,000 UNIT/250 ML IV.SOLN IVC SCH (16:25)
--- NOTE | 2018-12-26 16:53 | Invasive Diagnostic Lab Proc ---
Name: To Ram Date of Study: 12/26/2018 Date: 1935 Ht: 74.0in Medical Record#: [id number] Age: 83 Wt: 158.73lb Gender: Male BSA: 1.97 Order #: [id number] BMI: 20.37 Physicians Procedure Physician: Dedrick Reeves MD Referring MD: Referring MD: Staff Name Position [facility] Monitor 03:16 PM Fredrick Ambrosio RN Track Vehicle Repairer 03:16 PM Binta Nolasco RT (R) Scrub 03:16 PM Jane Jolly RT (R) Scrub 03:16 PM Indications Indication Non-Stemi Procedures Performed Procedure CORONARY ART/GRFT ANGIO S&I INJECT SUPRVLVAORTAGRAM Pre-Procedure Checklist Informed consent is complete signed and on chart. H&P is on chart. ID band is on and ID verified with patient. Patient NPO for procedure The procedure was described for the patient and questions were answered. ECG is on chart. Plan of Care Patient will tolerate the procedure without complications. Adequate level of comfort will be maintained. Hemodynamics will remain stable Patient will recover from procedure without complications. Respiratory function will be maintained. Cardiac rhythm will remain stable. Patient temperature will be maintained. Patient and/or family have verbalized understanding of the procedure. Patient Education Chief Complaint/Reason for Test: Cardiac Cath Developmental Category: Geriatric (65+ years) Developmentally Appropriate for Age: Yes Learning Barriers: None Education Needs: Procedure Education Method: Verbal Information Taught: Cardiac Cath Educational Evaluation: Able to repeat information Intravenous Access Time IV Size Location DC'd Fluid/Drip Rate Units RN 20g 1 08/08" Patent On Arrival 0.9NaCl ml/hr Allergies No Known Allergies Vital Signs Time BP (mmHg) HR (bpm) O2 Sat. RR (bpm) LOC 03:16 PM / % 5 = Fully awake and oriented or at pre-proc level 03:16 PM / % 4 = Oriented but drowsy 03:32 PM / % 4 = Oriented but drowsy 03:47 PM / % 4 = Oriented but drowsy 03:20 PM 164 / 92 66 94 % 19 03:24 PM 162 / 85 59 95 % 8 03:29 PM 134 / 72 54 95 % 14 03:34 PM 138 / 73 53 96 % 13 03:39 PM 136 / 77 58 94 % 15 03:44 PM 146 / 79 60 95 % 14 03:49 PM 152 / 98 62 95 % 13 03:54 PM 158 / 94 66 93 % 13 03:59 PM 166 / 93 68 93 % 16 04:05 PM 166 / 99 72 95 % 25 04:02 PM / % 4 = Oriented but drowsy Procedural Medications Time Medication Dose Units Method Given By 03:16 PM Oxygen 2 L/min nasal cannula Fredrick Ambrosio RN 03:20 PM Versed 1 mg Intravenous Fredrick Ambrosio RN 03:20 PM Fentanyl 50 mcg Intravenous Fredrick Ambrosio RN 03:30 PM Lidocaine 2% 19 ml Subcutaneous Dedrick Reeves MD 03:30 PM Versed 0.5 mg Intravenous Fredrick Ambrosio RN 03:30 PM Fentanyl 25 mcg Intravenous Fredrick Ambrosio RN 04:21 PM Hydralazine 10 mg Intravenous Fredrick Ambrosio RN ASA Classification: CLASS II- Mild systemic disease (i.e. well-controlled diabetes, hypertension, asthma, cigarette smoking) Matt Score Preprocedure Postprocedure Activity 2- Moves 4 extremities sustained head lift Activity 2- Moves 4 extremities sustained head lift Circulation 2- SBP +/= 20 points of pre-anesthetic level Circulation 2- SBP +/= 20 points of pre-anesthetic level Consciousness 2- Awake and alert oriented x 3 Consciousness 2- Awake and alert oriented x 3 O2 Saturation 2- Able to maintain O2 satruation of 92% on room air O2 Saturation 2- Able to maintain O2 satruation of 92% on room air Respiratory 2- Able to deep breathe and cough well Respiratory 2- Able to deep breathe and cough well Total Score 10 Total Score 10 Contrast Agent: Isovue Fluoro Dose: 57 mGy Procedure Log Time Note Enter By 03:16 PM Pt arrived to lab engineer 2 at 15:16 [email or web address] 03:16 PM Gila Jimenez RN Position: Monitor Time in: 15:16 [email or web address] 03:16 PM Fredrick Ambrosio RN Position: Track Vehicle Repairer Time in: 15:16 [email or web address] 03:16 PM Binta Nolasco RT (R) Position: Scrub Time in: 15:16 [email or web address] 03:16 PM Jane Jolly RT (R) Position: Scrub Time in: 15:16 [email or web address] 03:16 PM Patient charges- Angio tray pack, Navilyst 3mm J, Pulse Oximetry and ACIST tubing and transducer [email or web address] 03:16 PM Case Delayed No [email or web address] 03:16 PM Physician arrived 15:16 [email or web address] 03:16 PM Sony and zach completed [email or web address] 03:16 PM Sign in performed according to hospital policy. Informed consent was obtained. [email or web address] 03:16 PM Procedure start 15:16 [email or web address] 03:16 PM Time: 15:16 Oxygen on at 2 L/min per nasal cannula by Fredrick Ambrosio RN [email or web address] 03:16 PM Time: 15:16 Patient comfortable and pain free: Yes [email or web address] 03:16 PM Time: 15:16LOC: 5 = Fully awake and oriented or at pre-proc level [email or web address] 03:16 PM ASA Class CLASS II- Mild systemic disease (i.e. well-controlled diabetes, hypertension, asthma, cigarette smoking) [email or web address] 03:17 PM Hair removed from procedure site in procedure lab using clippers. Bilateral groin prepped with Chloraprep by Fredrick Ambrosio RN, then patient was draped. Skin intact. [email or web address] 03:19 PM CathStat 03:19 PM Vitals capture started with the following parameters, Patient=Adult, Interval=5 min, Initial Vvmwdrmm=997 mmHg, Deflation Rate=5 mmHg, Cuff placed on Left Arm 03:20 PM HR=66 bpm, HCIV=625/92 mmhg, SpO2=94.0 %, Resp=19 B/min 03:20 PM Recorded ECG: HR=66 Condition=Condition 1 03:20 PM Time: 15:20 Versed 1 mg Intravenous Given by Fredrick Ambrosio RN 03:20 PM Time: 15:20 Fentanyl 50 mcg Intravenous Given by Fredrick Ambrosio RN [email or web address] 03:24 PM HR=59 bpm, QUWX=409/85 mmhg, SpO2=95.0 %, Resp=8 B/min 03:27 PM Time out was performed according to hospital policy. Conscious sedation and anesthesia was achieved (see medication log with in this report above) 03:29 PM HR=54 bpm, XCWH=156/72 mmhg, SpO2=95.0 %, Resp=14 B/min 03:30 PM Pressure channel 1 zeroed. 03:30 PM Time: 15:30 19 ml Lidocaine 2% to right groin Subcutaneous Given by Dedrick Reeves MD [email or web address] 03:30 PM Time: 15:30 Versed 0.5 mg Intravenous Given by Fredrick Ambrosio RN tayo 03:30 PM Time: 15:30 Fentanyl 25 mcg Intravenous Given by Fredrick Ambrosio RN 03:32 PM Time: 15:16LOC: 4 = Oriented but drowsy [email or web address] 03:32 PM Time: 15:16 Patient comfortable and pain free: Yes erum 03:34 PM Micro-Introducer Kit utilized for sheath placement erum 03:34 PM Sheath exchanged for a 6 Fr 11 cm Cordis Sharon sheath [id number] 03:34 PM 0.035 145cm Navilyst 3mmJ wire [id number] 03:34 PM 5Fr FR 4 catheter inserted over the wire DNC erum 03:34 PM HR=53 bpm, PVHF=174/73 mmhg, SpO2=96.0 %, Resp=13 B/min 03:35 PM wire removed 03:36 PM RCA angiography performed in multiple views. 03:36 PM Recorded Pressure: Ao, HR=58, Condition=Condition 1 (Aorta) Ao 115/66/88 03:36 PM Coronary Dominance: right erum 03:38 PM Catheter removed 03:39 PM Sheath exchanged for a 6 Fr 45 cm Cook sheath [id number] 03:39 PM HR=58 bpm, XTMO=577/77 mmhg, SpO2=94.0 %, Resp=15 B/min 03:42 PM FR4 reinserted erum 03:44 PM HR=60 bpm, GDXW=695/79 mmhg, SpO2=95.0 %, Resp=14 B/min, EtCO2=29 mmHg 03:47 PM Time: 15:32 Patient comfortable and pain free: Yes tayo 03:47 PM Time: 15:32LOC: 4 = Oriented but drowsy norman 03:49 PM HR=62 bpm, PEVB=070/98 mmhg, SpO2=95.0 %, Resp=13 B/min, EtCO2=30 mmHg 03:49 PM Left JANETTE to the LAD angio performed in multiple views. [email or web address] 03:50 PM Recorded Pressure: Ao, HR=64, Condition=Condition 1 (Aorta) Ao 140/83/109 03:50 PM Catheter removed [email or web address] 03:51 PM 5Fr MPA catheter inserted over the wire [id number] oumm 03:54 PM HR=66 bpm, FPTQ=081/94 mmhg, SpO2=93.0 %, Resp=13 B/min, Comment=nsr 03:56 PM Catheter removed oumm 03:56 PM 5Fr FL 4 catheter inserted over the wire DNC tsoumm 03:57 PM Recorded Pressure: Ao, HR=71, Condition=Condition 1 (Aorta) Ao 151/89/116 03:57 PM LCA angiography performed in multiple views. oumm 03:59 PM 6Fr IM catheter inserted over the wire [id number] oumm 03:59 PM Recorded Pressure: Ao, HR=73, Condition=Condition 1 (Aorta) Ao 167/89/123 03:59 PM HR=68 bpm, QEOU=161/93 mmhg, SpO2=93 %, Resp=16 B/min 04:01 PM Catheter removed 04:01 PM 5Fr Pigtail catheter inserted over the wire [facility] tsoumm 04:02 PM Time: 15:47LOC: 4 = Oriented but drowsy [email or web address] 04:02 PM Time: 15:47 Patient comfortable and pain free: [email or web address] 04:02 PM Bolus angiogram of aortic root shot complete: 10 ml/sec for a total of 15 mls [email or web address] 04:04 PM [facility] 04:05 PM HR=72 bpm, QNBR=994/99 mmhg, SpO2=95.0 %, Resp=25 B/min 04:06 PM Procedure completed at 16:05 12/26/2018 [email or web address] 04:07 PM Did you address BETTY flow and Dominance? YesCoronary Dominance: right [email or web address] 04:08 PM Sign out completed: Radiation Dose 377.63 mGy, 56.9 Gy/cm2 Fluoro Time: 17.7 Isovue 370 - 200ml contrast ml given by Dedrick Reeves MD. Complications: None. 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 Sedation minutes 47. Cardiac Rehab Consult needed: Yes. Confirmed administered medications: Yes tsmm 04:08 PM Isovue 370 - 200ml,2 Bottle(s) used. mm 04:08 PM Estimated Blood Loss: less than 20cc mm 04:08 PM Post ECG NSR oumm 04:08 PM Post Blood Pressure 166/99 tsoumm 04:09 PM Information taught Cardiac Cath mm 04:09 PM Education needs Procedure, Plan of Care, and Responsibilities of Patient in Care mm 04:09 PM Learning barriers :None mm 04:09 PM Education Methods Verbal oumm 04:09 PM Education evaluation Able to repeat information mm 04:09 PM Site status No bleeding/hematoma - Rt Groin as reported by Sites, Binta RT (R) at 16:09 mm 04:09 PM Plavix, Effient or Brilinta given No oummers 04:10 PM Delay to floor floor does not take sheaths, will pull in lab and go back to 2A35 oumm 04:10 PM Family placed in consult room. mm 04:10 PM Complications: None 04:13 PM Sheath pulled at this time by Jane Jolly RT(R), Delia Garcia RN [facility] 04:18 PM Time: 16:18 Patient comfortable and pain free: Yes mm 04:18 PM Time: 16:02 Patient comfortable and pain free: Yes mm 04:18 PM Time: 16:02LOC: 4 = Oriented but drowsy mm 04:21 PM Time: 16:21 Hydralazine 10 mg Intravenous Given by Fredrick Ambrosio RN mm 04:22 PM Lesion found in Proximal LAD. Pre Stenosis: 100 Pre BETTY Flow: [email or web address] 04:22 PM Proximal Left Anterior Descending Coronary Artery with 100% stenosis. If graft is supplying this territory, 0 % stenosis. oummers 04:22 PM Lesion found in Mid RCA. Pre Stenosis: 90 Pre BETTY Flow: tsoummers 04:22 PM Lesion found in Distal RCA. Pre Stenosis: 100 Pre BETTY Flow: [email or web address] 04:22 PM Right Coronary, Right Posterior Descending Arteries with Right Posterolateral and Acute Marginal branches with 100 % stenosis. If graft is supplying this area, 0 % stenosis tsmmers 04:23 PM Lesion found in Proximal Circumflex. Pre Stenosis: 100 Pre BETTY Flow: tsmm 04:23 PM Circumflex, Obtuse Marginal, Left Posterior Descending, and Left Posterolateral Coronary Arteries with 100 % stenosis. If graft is supplying this area, 0 % stenosis tsmmers 04:38 PM Arterial sheath pulled using manual compression and V+ Pad for 19 minutes by Zack Garcia RN [email or web address] 04:38 PM Report given to eTmo ESPINOZA Pt taken to 2A Room #35. 16:38 [email or web address] 04:38 PM Opsite applied [email or web address] 04:39 PM Site status No bleeding/hematoma - Rt Groin as reported by Zack Garcia RN at 16:[address] [facility] 04[facility] PM Patient out of room: 16:39 [facility] Complications Complication None Hemodynamics Pressures Site Systolic/A Wave Diastolic/V Wave Mean AO 115 66 88 AO 140 83 109 AO 151 89 116 AO 167 89 123 Post Procedure Information Blood Pressure: 166/99 mmHg Rhythm: NSR Post procedural instructions were given Closure Device Time Device Success/Fail 12/26/2018 4:13:00 PM Manual Compression Successful Site Checks Time Location Status Staff Sheath In? Note 04:09 PM Rt Groin No bleeding/hematoma Sites, Binta RT (R) 04:39 PM Rt Groin No bleeding/hematoma Zack Garcia RN Pulses Time Site Pre-Procedure Post-Procedure Note Bilateral DP & PT 2+ Bilateral radial 2+ Updated by Betty Lopez RT(R) on 12/26/2018 4:43:25 PM electronically signed on 12/26/2018 4:43:51 PM with status of Final
--- NOTE | 2018-12-26 17:19 | Electrocardiograph Report ---
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
[2018-12-27 06:09] LABS: Basophils # 0.1 K/mcL (0.0-0.2); Basophils % 0.7 %; Eosinophils # 0.1 K/mcL (0.0-0.6); Eosinophils % 0.8 %; Hematocrit 36.9 % (37.5-50.1); Hemoglobin 12.8 g/dL (12.9-16.9); Immature Granulocytes % 0.3 % (0-4); Lymphocytes # 1.4 K/mcL (0.6-4.6); Lymphocytes % 18.1 %; Mean Corpuscular HGB Conc 34.7 g/dL (31.6-35.5); Mean Corpuscular Hemoglobin 28.6 pg (28.0-33.3); Mean Corpuscular Volume 82.6 fL (83.0-100.0); Mean Platelet Volume 9.3 fL (9.4-12.4); Monocytes # 0.8 K/mcL (0.0-1.3); Monocytes % 9.9 %; Neutrophils # 5.4 K/mcL (1.6-8.9); Platelet Count 152 K/mcL (140-400); Red Blood Count 4.47 M/mcL (4.19-5.50); Red Cell Distribution Width 15.7 % (11.5-14.5); Segmented Neutrophils % 70.2 %
[2018-12-27 06:28] LABS: BUN/Creatinine Ratio 14 (6-26); Blood Urea Nitrogen 13 mg/dL (8-23); Calcium 9.3 mg/dL (8.6-10.3); Carbon Dioxide 26 mEq/L (23-29); Chloride 96 mEq/L (98-107); Glucose 89 mg/dL (70-105); Magnesium 1.9 mg/dL (1.6-2.6); Osmolality,Calculated 268 (280-300); Potassium 4.2 mEq/L (3.5-5.1); Sodium 129 mEq/L (136-145); eGFR For Non-African Americans > 60 (> 60)
--- NOTE | 2018-12-27 07:20 | Discharge Summary ---
Date of Encounter: 12/27/18 Time of Encounter: 07:00 - Discharge Diagnosis (1) Chest pain Priority: Primary Status: Acute Assessment and Plan: 83 year old male with past medical history of hypertension, hyperlipidemia, tobacco dependence, PAD, and CAD status post cardiac stents and CABG who presented to the ED complaining of left-sided chest pain radiating to his left upper extremity at rest. Chest pain is a dull pressure-like sensation waxing and waning in severity during the past couple of weeks. Nothing makes his chest pain better or worse. Patient had associated nausea upon this morning upon awakening this morning which caused him to come to the ED. He denies associated fever, chills, diaphoresis, shortness of breath, cough, vomiting, diarrhea, leg edema, or recent illness. Patient reports compliance with his Aspirin and Plavix. He was assessed with left sided chest pain and has risk factors for CAD. Troponins were trending up. He was started on a heparin drip and continue on his home aspirin and plavix. Echo showed LVEF of 40-45%. He was seen by cardiology and had a left heart cath done showing patent HOFFMAN to LAD. Imdur was added to his regimen and he was discharged home in a stable condition Qualifiers: Chest pain type: unspecified Qualified Code(s): R07.9 - Chest pain, unspecified (2) CAD (coronary artery disease) Priority: Primary Status: Acute Qualifiers: Coronary Disease-Associated Artery/Lesion type: [place] artery [place] vs. transplanted heart: [place] heart Associated angina: with unspecified angina Qualified Code(s): I25.119 - Atherosclerotic heart disease of [place] coronary artery with unspecified angina pectoris (3) Tobacco dependence Priority: Primary Status: Chronic (4) HTN (hypertension) Priority: Primary Status: Acute Qualifiers: Hypertension type: unspecified Qualified Code(s): I10 - Essential (primary) hypertension (5) HLD (hyperlipidemia) Priority: Primary Status: Chronic Qualifiers: Hyperlipidemia type: unspecified Qualified Code(s): E78.5 - Hyperlipidemia, unspecified (6) DVT prophylaxis Priority: Primary Status: Acute Hospital course: Mr. Ram is a 83 year old male - Time Spent with Patient Total time spent providing and/or coordinating discharge services: - Discharge Medications Prescriptions: New Isosorbide MONOnitrate (24 HR) [Imdur] 30 mg PO DAILY #60 tab.er.24h Atorvastatin [Lipitor] 40 mg PO HS #60 tablet Continued Metoprolol Succinate [Toprol Xl] 25 mg PO DAILY Losartan Potassium 50 mg PO DAILY dilTIAZem HCl [Diltiazem ER] 240 mg PO DAILY Clopidogrel [Plavix] 75 mg PO DAILY Aspirin 325 mg PO DAILY Discontinued Atorvastatin Calcium [Lipitor] 20 mg PO QPM Home Medications: Aspirin 325 mg PO DAILY 12/25/18 [History] Clopidogrel [Plavix] 75 mg PO DAILY 12/25/18 [History] Losartan Potassium 50 mg PO DAILY 12/25/18 [History] Metoprolol Succinate [Toprol Xl] 25 mg PO DAILY 12/25/18 [History] dilTIAZem HCl [Diltiazem ER] 240 mg PO DAILY 12/25/18 [History] Atorvastatin [Lipitor] 40 mg PO HS #60 tablet 12/27/18 [Rx] Isosorbide MONOnitrate (24 HR) [Imdur] 30 mg PO DAILY #60 tab.er.24h 12/27/18 [Rx] Allergies/Adverse Reactions: Allergy/AdvReac Type Severity Reaction Status Date / Time No Known Allergies Allergy Verified 11/24/15 13:56 Date of admission: 12/25/18 06:16 Primary care physician: Anamika Lim Consults: 12/25/18 08:11 Consult to Cardiology [CONS] Routine Comment: Consulting Provider: Cardiology Renu Reason for Consult: CP radiaiting to left arm, improved with NTG, h/o CAD s/p CABG, cardiac stents, tobacco dependence Time Notified: 08:16 Call Completed: Yes - Constitutional Vitals: Temp Pulse Resp BP Pulse Ox 98.2 F 78 17 122/57 94 12/27/18 03:48 12/27/18 03:48 12/27/18 03:48 12/27/18 03:48 12/27/18 03:48 General appearance: Present: cooperative, mild distress, A&O X 3, pleasant, answers questions appropriately Exam: General appearance: Present: A&O X 3, no acute distress Head exam: Present: normocephalic Respiratory exam: Present: CTAB. Absent: accessory muscle use, rales, rhonchi, wheezes Cardiovascular exam: Present: RRR, +S1, +S2. Absent: diastolic murmur, gallop, rubs, systolic murmur GI/Abdominal exam: Soft, NT, ND, +BS Extremities exam: Absent: pedal edema Neurological exam: Present: alert, oriented X3, no focal deficits. Absent: altered - Patient Status Disposition: Home, Self-Care Condition: Good - Discharge Instructions Instructions: Chest Pain (DC), Heart Healthy Diet (DC) Follow Up With: Ritu Phillips DO [Primary Care Provider] - (Web-request completed 12/27/2018 ) Dedrick Reeves [Partnered Physician] - (Office will call to schedule ) Additional Instructions: RISK FACTORS: STOP SMOKING: If you smoke, STOP. Smoking or tobacco use significantly increases your risk of heart disease because nicotine causes the arteries to narrow or constrict. It also causes fats to stick to the artery. Your chances of having a heart attack are greatly increased if you continue to smoke. For more information, call the education line for smoking cessation [id number] EAT A LOW FAT/CHOLESTEROL/SODIUM DIET: This diet may help reduce your chances of having a heart attack. LIFTING: Avoid lifting anything more than 10 pounds for 5-7 days Prior to straining, laughing, sneezing and/or coughing, apply manual pressure directly over insertion site. ACTIVITY: You may walk or climb stairs as tolerated You can resume sexual activity as tolerated In general, you are encouraged to engage in a minimum of 30 minutes or more of moderate intensity physical activity, such as brisk walking, daily or at least 3-4 times weekly BATHING Do not submerge the site into water (bath tub, hot tub, swimming pool) for 1 week. This can be a source for infection into the blood stream. You may shower after 24 hours SITE CARE: After 24 hours, you may remove the dressing and leave the site open to air. Keep the site clean and dry. Clean gently and pat dry. You can expect bruising and tenderness that gradually resolve within a week or two. Return to work as instructed per your physician Resume driving as instructed per physician Keep all scheduled follow up appointments Resume medications as instructed IMPORTANT: If prescribed a Platelet Aggregation Inhibitor such as, Plavix, Brilinta or Effient: Duration of therapy is minimum one year These medications are often used in combination with Aspirin in prevention of future heart attacks Never discontinue unless consult with your [employer] Claim Examiner STROKE (CVA) Risk factors for a stroke are: Age, cigarette smoking, diabetes, excessive alcohol consumption, family history, high blood pressure, overweight, physical inactivity, prior stroke, heart attack, diagnosis of carotid artery stenosis or other artery disease. Warning signs: Sudden numbness or weakness of the face, arm or leg; especially on one side of the body, sudden confusion, trouble speaking or understanding, sudden trouble seeing in one or both eyes, sudden trouble walking, dizziness, loss of balance or coordination, sudden severe headache with no cause. Call 911 or go to the Emergency Room. CONGESTIVE HEART FAILURE: If you have been diagnosed with Congestive Heart Failure (CHF) and your symptoms return, make an appointment with your physician Weigh yourself daily. Notify your physician if you have a weight gain of two or more pounds in one day or five or more pounds in one week. If you experience any difficulty breathing, please call 911 BLEEDING: Although the risk of bleeding is minimal, it can happen. If you have any bleeding from the site, apply firm pressure above the puncture site for 10-15 minutes. If the bleeding does not stop, continue manual pressure and call 911 Contact your physician if: You develop a fever greater than 101 degrees Fahrenheit Your site becomes reddened or has any drainage You have an increase in pain or burning at the site or if a large knot forms at the site. If you experience chest pain, shortness of breath, dizziness, or extreme tiredness, stop the activity and rest. Please notify your physicians office if you experience any of these symptoms and they are not relieved by rest please call 911!
[2018-12-27 07:51] VITALS: BP 150/86
[2018-12-27] MEDS ORDERED: Isosorbide MONOnitrate (24 HR) 30 MG TAB.ER.24H PO SCH (09:00)
[2018-12-27] MEDS ORDERED: Aspirin 81 MG TAB.CHEW PO SCH (09:00)
[2018-12-27] MEDS: Metoprolol XL (24 HR) Succ 25 MG TAB.ER.24H PO SCH (09:48)
[2018-12-27] MEDS: Diltiazem CD (24hr) 240 MG CAPSULE PO SCH (09:48)
== END 2018-12-27 11:55 | disposition home or self-care (01) ==
LOC: EMEROOARM 04:07 → 2ANU 04:07
PROVIDERS: ADMIT Internal Medicine; ATTEND Internal Medicine

== ENCOUNTER 2019-07-30 01:56 | Inpatient (IN) ==
[2019-07-30] MEDS ORDERED: Furosemide 40 MG/4 ML VIAL IVP ONE (02:43)
[2019-07-30 02:49] LABS: Basophils # 0.1 K/mcL (0.0-0.2); Basophils % 1.1 %; Eosinophils # 1.4 K/mcL (0.0-0.6); Eosinophils % 19.3 %; Hematocrit 32.8 % (37.5-50.1); Hemoglobin 11.3 g/dL (12.9-16.9); Immature Granulocytes % 0.3 % (0-4); Lymphocytes # 1.5 K/mcL (0.6-4.6); Lymphocytes % 20.1 %; Mean Corpuscular HGB Conc 34.5 g/dL (31.6-35.5); Mean Corpuscular Hemoglobin 28.8 pg (28.0-33.3); Mean Corpuscular Volume 83.7 fL (83.0-100.0); Mean Platelet Volume 9.7 fL (9.4-12.4); Monocytes # 0.6 K/mcL (0.0-1.3); Monocytes % 8.6 %; Neutrophils # 3.8 K/mcL (1.6-8.9); Platelet Count 141 K/mcL (140-400); Red Blood Count 3.92 M/mcL (4.19-5.50); Red Cell Distribution Width 16.2 % (11.5-14.5); Segmented Neutrophils % 50.6 %; White Blood Count 7.5 K/mcL (4.3-11.1)
[2019-07-30] MEDS ORDERED: Ipratropium/Albuterol Neb 3 ML IH ONE (02:54)
[2019-07-30 03:16] LABS: Alanine Aminotransferase 9 Units/L (7-52); Albumin 3.7 g/dL (3.5-5.7); Albumin/Globulin Ratio 1.3 (1.1-2.2); Alkaline Phosphatase 97 Units/L (34-104); Aspartate Amino Transferase 16 Units/L (13-39); BUN/Creatinine Ratio 20 (6-26); Bilirubin,Total 0.9 mg/dL (0.3-1.0); Blood Urea Nitrogen 24 mg/dL (8-23); Calcium 8.7 mg/dL (8.6-10.3); Carbon Dioxide 25 mEq/L (23-29); Chloride 103 mEq/L (98-107); Globulin 2.9 g/dL (2.4-3.5); Glucose 94 mg/dL (70-105); Osmolality,Calculated 282 (280-300); Sodium 134 mEq/L (136-145); Total Protein 6.6 g/dL (6.4-8.9); Troponin I 0.04 ng/mL (< 0.04); eGFR For African Americans > 60 (> 60); eGFR For Non-African Americans 56 (> 60)
[2019-07-30] MEDS ORDERED: Aspirin 81 MG TAB.CHEW PO STA (03:28)
[2019-07-30] MEDS: Ipratropium/Albuterol Neb 3 ML IH SCH ×5 (04:45→22:20)
[2019-07-30] MEDS: Diltiazem CD (24hr) 240 MG CAPSULE PO SCH (06:02)
[2019-07-30] MEDS: *HR* Heparin 5,000 UNIT/ML VIAL SQ SCH ×3 (06:02→21:46)
[2019-07-30] MEDS: Aspirin 325 MG TABLET PO SCH (08:05)
[2019-07-30] MEDS: Metoprolol XL (24 HR) Succ 25 MG TAB.ER.24H PO SCH (08:05)
[2019-07-30] MEDS: Isosorbide MONOnitrate (24 HR) 30 MG TAB.ER.24H PO SCH (08:05)
[2019-07-30] MEDS ORDERED: Metoprolol XL (24 HR) Succ 25 MG TAB.ER.24H PO SCH (09:00)
[2019-07-30] MEDS ORDERED: Furosemide 40 MG/4 ML VIAL IVP SCH (21:00)
[2019-07-31] MEDS ORDERED: Acetaminophen 325 MG TABLET PO ONE (03:02)
[2019-07-31] MEDS: Ipratropium/Albuterol Neb 3 ML IH SCH ×4 (04:32→22:26)
[2019-07-31] MEDS ORDERED: *HR* HYDROcodone/Acet 5/325 mg TABLET PO ONE (04:40)
[2019-07-31] MEDS: Diltiazem CD (24hr) 240 MG CAPSULE PO SCH (05:05)
[2019-07-31] MEDS: *HR* Heparin 5,000 UNIT/ML VIAL SQ SCH ×3 (05:05→23:05)
[2019-07-31 06:57] LABS: Basophils % 0.1 %; Eosinophils % 0.1 %; Hematocrit 33.5 % (37.5-50.1); Hemoglobin 11.3 g/dL (12.9-16.9); Immature Granulocytes % 0.4 % (0-4); Lymphocytes # 0.9 K/mcL (0.6-4.6); Lymphocytes % 7.9 %; Mean Corpuscular HGB Conc 33.7 g/dL (31.6-35.5); Mean Corpuscular Hemoglobin 28.8 pg (28.0-33.3); Mean Corpuscular Volume 85.5 fL (83.0-100.0); Monocytes % 8.1 %; Platelet Count 155 K/mcL (140-400); Red Blood Count 3.92 M/mcL (4.19-5.50); Red Cell Distribution Width 16.1 % (11.5-14.5); Segmented Neutrophils % 83.4 %
[2019-07-31 06:58] LABS: Neutrophils # 9.8 K/mcL (1.6-8.9); White Blood Count 11.7 K/mcL (4.3-11.1)
[2019-07-31 07:11] LABS: Calcium 9.1 mg/dL (8.6-10.3); Magnesium 1.9 mg/dL (1.6-2.6); Potassium 3.8 mEq/L (3.5-5.1)
[2019-07-31] MEDS: Aspirin 325 MG TABLET PO SCH (09:51)
[2019-07-31] MEDS: Isosorbide MONOnitrate (24 HR) 30 MG TAB.ER.24H PO SCH (09:51)
[2019-07-31] MEDS: Metoprolol XL (24 HR) Succ 25 MG TAB.ER.24H PO SCH (09:51)
[2019-07-31 13:20] LABS: Potassium 3.9 mEq/L (3.5-5.1)
[2019-08-01] MEDS: Ipratropium/Albuterol Neb 3 ML IH SCH ×2 (04:20→10:29)
[2019-08-01 05:19] LABS: Hematocrit 31.1 % (37.5-50.1); Hemoglobin 10.8 g/dL (12.9-16.9); Mean Corpuscular HGB Conc 34.7 g/dL (31.6-35.5); Mean Corpuscular Hemoglobin 28.1 pg (28.0-33.3); Mean Platelet Volume 9.8 fL (9.4-12.4); Platelet Count 145 K/mcL (140-400); Red Blood Count 3.84 M/mcL (4.19-5.50); Red Cell Distribution Width 16.2 % (11.5-14.5); White Blood Count 10.3 K/mcL (4.3-11.1)
[2019-08-01 05:40] LABS: Calcium 8.8 mg/dL (8.6-10.3); Potassium 3.9 mEq/L (3.5-5.1)
[2019-08-01] MEDS: *HR* Heparin 5,000 UNIT/ML VIAL SQ SCH (05:56)
[2019-08-01] MEDS: Diltiazem CD (24hr) 240 MG CAPSULE PO SCH (05:56)
[2019-08-01 06:59] VITALS: BP 144/80
[2019-08-01] MEDS: Aspirin 325 MG TABLET PO SCH (07:19)
[2019-08-01] MEDS: Isosorbide MONOnitrate (24 HR) 30 MG TAB.ER.24H PO SCH (07:20)
[2019-08-01] MEDS: Metoprolol XL (24 HR) Succ 25 MG TAB.ER.24H PO SCH (07:20)
[2019-08-01] MEDS ORDERED: Furosemide 40 MG TABLET PO SCH (09:00)
[2019-08-01] MEDS ORDERED: FLU Vac QV 19-20 (6Month+)/PF 0.5 ML SYRINGE IM ONE (10:18)
== END 2019-08-01 11:46 | disposition home or self-care (01) | DRG 291 ==
LOC: 2ANU 01:56 → EMEROOARM 01:56 → SUATTDRO 04:09 → 2ANU 04:40
PROVIDERS: ADMIT Internal Medicine; ATTEND Internal Medicine

== ENCOUNTER 2019-10-07 04:09 | Inpatient (IN) ==
[2019-10-07] MEDS ORDERED: Nitroglycerin 0.4 MG TAB.SUBL SL ONE (04:17)
[2019-10-07] MEDS ORDERED: Aspirin 81 MG TAB.CHEW PO STA (04:19)
[2019-10-07] MEDS: Nitroglycerin 0.4 MG TAB.SUBL SL PRN ×2 (04:20→04:25)
[2019-10-07 04:34] LABS: Hematocrit 38.1 % (37.5-50.1); Hemoglobin 12.1 g/dL (12.9-16.9); Mean Corpuscular HGB Conc 31.8 g/dL (31.6-35.5); Mean Corpuscular Hemoglobin 27.8 pg (28.0-33.3); Mean Corpuscular Volume 87.4 fL (83.0-100.0); Mean Platelet Volume 9.8 fL (9.4-12.4); Platelet Count 161 K/mcL (140-400); Red Blood Count 4.36 M/mcL (4.19-5.50); Red Cell Distribution Width 15.8 % (11.5-14.5); White Blood Count 9.6 K/mcL (4.3-11.1)
[2019-10-07] MEDS ORDERED: *HR* Enoxaparin 40 MG/0.4 ML SYRINGE SQ STA (04:37)
[2019-10-07 05:02] LABS: BUN/Creatinine Ratio 22 (6-26); Blood Urea Nitrogen 30 mg/dL (8-23); Calcium 9.1 mg/dL (8.6-10.3); Carbon Dioxide 26 mEq/L (23-29); Chloride 101 mEq/L (98-107); Glucose 107 mg/dL (70-105); Osmolality,Calculated 291 (280-300); Potassium 4.2 mEq/L (3.5-5.1); Sodium 137 mEq/L (136-145); Troponin I 0.03 ng/mL (< 0.04); eGFR For African Americans > 60 (> 60); eGFR For Non-African Americans 50 (> 60)
[2019-10-07] MEDS ORDERED: Ondansetron 4 MG/2 ML VIAL IVP PRN (05:27)
[2019-10-07] MEDS ORDERED: Naloxone 0.4 MG/ML INJ IVP PRN (05:27)
[2019-10-07] MEDS ORDERED: Ipratropium/Albuterol Neb 3 ML IH PRN (05:30)
[2019-10-07 06:04] LABS: Magnesium 2.1 mg/dL (1.6-2.6); Phosphorous 3.7 mg/dL (2.7-4.5)
[2019-10-07] MEDS ORDERED: Furosemide 40 MG TABLET PO SCH (09:00)
[2019-10-07] MEDS ORDERED: Isosorbide MONOnitrate (24 HR) 30 MG TAB.ER.24H PO SCH (09:00)
[2019-10-07] MEDS: Aspirin 325 MG TABLET PO SCH (10:47)
[2019-10-07] MEDS: Metoprolol XL (24 HR) Succ 50 MG TAB.ER.24H PO SCH (10:47)
[2019-10-07] MEDS ORDERED: Heparin 25,000 UNIT/250 ML D5W 25,000 UNIT/250 ML IV.SOLN IVC SCH ×2 (11:45→16:00)
[2019-10-07] MEDS ORDERED: *HR* Heparin 5,000 UNIT/ML VIAL IVP PRN ×4 (11:45→16:00)
[2019-10-07] MEDS ORDERED: *HR* Heparin 5,000 UNIT/ML VIAL IVP ONE ×2 (11:45→16:00)
[2019-10-07] MEDS ORDERED: Furosemide 40 MG/4 ML VIAL IVP ONE ×2 (13:10→21:00)
[2019-10-07] MEDS: Heparin 25,000 UNIT/250 ML D5W 25,000 UNIT/250 ML IV.SOLN IVC SCH (16:20)
[2019-10-07] MEDS ORDERED: Perflutren Lipid Microsphere 1.3 ML in 0.9 % Sodium Chloride 8.7 ML IVP ONE (19:03)
[2019-10-07] MEDS ORDERED: Furosemide 40 MG/4 ML VIAL IVP SCH (21:00)
[2019-10-07] MEDS ORDERED: Ranolazine 500 MG TAB.ER.12H PO SCH (21:00)
[2019-10-08 02:18] LABS: Basophils # 0.1 K/mcL (0.0-0.2); Eosinophils # 0.6 K/mcL (0.0-0.6); Eosinophils % 9.1 %; Hematocrit 33.9 % (37.5-50.1); Hemoglobin 11.5 g/dL (12.9-16.9); Immature Granulocytes % 0.3 % (0-4); Lymphocytes # 1.7 K/mcL (0.6-4.6); Lymphocytes % 24.3 %; Mean Corpuscular HGB Conc 33.9 g/dL (31.6-35.5); Mean Corpuscular Volume 85.4 fL (83.0-100.0); Mean Platelet Volume 9.9 fL (9.4-12.4); Monocytes # 0.8 K/mcL (0.0-1.3); Neutrophils # 3.8 K/mcL (1.6-8.9); Platelet Count 154 K/mcL (140-400); Red Blood Count 3.97 M/mcL (4.19-5.50); Red Cell Distribution Width 15.5 % (11.5-14.5); Segmented Neutrophils % 54.3 %; White Blood Count 7.1 K/mcL (4.3-11.1)
[2019-10-08 02:24] LABS: INR 1.1; Prothrombin Time 12.5 Seconds (9.4-12.1)
[2019-10-08 02:35] LABS: BUN/Creatinine Ratio 22 (6-26); Blood Urea Nitrogen 29 mg/dL (8-23); Calcium 8.8 mg/dL (8.6-10.3); Carbon Dioxide 28 mEq/L (23-29); Chloride 99 mEq/L (98-107); Chol/HDL Ratio 2.4 (0-4.9); Cholesterol 136 mg/dL (< 200); Glucose 93 mg/dL (70-105); HDL Cholesterol 56 mg/dL (40-59); LDL Cholesterol,Calculated 72 mg/dL (0-99); Osmolality,Calculated 284 (280-300); Potassium 3.9 mEq/L (3.5-5.1); Sodium 134 mEq/L (136-145); Triglycerides 39 mg/dL (< 150); eGFR For African Americans > 60 (> 60); eGFR For Non-African Americans 52 (> 60)
[2019-10-08] MEDS: Aspirin 325 MG TABLET PO SCH (08:10)
[2019-10-08] MEDS: Ranolazine 500 MG TAB.ER.12H PO SCH ×2 (08:10→21:48)
[2019-10-08] MEDS: Metoprolol XL (24 HR) Succ 50 MG TAB.ER.24H PO SCH (08:10)
[2019-10-08] MEDS ORDERED: Furosemide 40 MG TABLET PO SCH (09:00)
[2019-10-08] MEDS: lisinopriL 5 MG TABLET PO SCH (10:20)
[2019-10-08] MEDS: Spironolactone 25 MG TABLET PO SCH (12:27)
[2019-10-08] MEDS: Heparin 25,000 UNIT/250 ML D5W 25,000 UNIT/250 ML IV.SOLN IVC SCH (16:27)
[2019-10-08] MEDS: *HR* Heparin 5,000 UNIT/ML VIAL SQ SCH (18:09)
[2019-10-08] MEDS: Isosorbide MONOnitrate (24 HR) 60 MG TAB.ER.24H PO SCH (21:48)
[2019-10-08] MEDS: Furosemide 40 MG/4 ML VIAL IVP SCH (21:48)
[2019-10-09] MEDS: *HR* Heparin 5,000 UNIT/ML VIAL SQ SCH ×2 (06:14→18:20)
[2019-10-09] MEDS: Ranolazine 500 MG TAB.ER.12H PO SCH ×2 (09:19→20:25)
[2019-10-09] MEDS: lisinopriL 5 MG TABLET PO SCH (09:19)
[2019-10-09] MEDS: Spironolactone 25 MG TABLET PO SCH (09:19)
[2019-10-09] MEDS: Aspirin 325 MG TABLET PO SCH (09:19)
[2019-10-09] MEDS: Isosorbide MONOnitrate (24 HR) 60 MG TAB.ER.24H PO SCH (09:19)
[2019-10-09] MEDS: Furosemide 40 MG/4 ML VIAL IVP SCH (09:19)
[2019-10-09] MEDS: Metoprolol XL (24 HR) Succ 50 MG TAB.ER.24H PO SCH (09:19)
[2019-10-09] MEDS ORDERED: 0.9 % Sodium Chloride 500 ML IVC ONE (11:34)
[2019-10-09] MEDS ORDERED: 0.9 % Sodium Chloride 500 ML ONE (11:36)
[2019-10-09] MEDS: Furosemide 40 MG TABLET PO SCH (14:27)
[2019-10-09] MEDS ORDERED: 0.9 % Sodium Chloride 250 ML IVC ONE (14:39)
[2019-10-09] MEDS ORDERED: 0.9 % Sodium Chloride 250 ML ONE (14:46)
[2019-10-10] MEDS: *HR* Heparin 5,000 UNIT/ML VIAL SQ SCH ×2 (05:10→20:05)
[2019-10-10 07:15] VITALS: BP 116/75
[2019-10-10] MEDS ORDERED: Metoprolol XL (24 HR) Succ 25 MG TAB.ER.24H PO SCH (09:00)
[2019-10-10] MEDS ORDERED: Isosorbide MONOnitrate (24 HR) 30 MG TAB.ER.24H PO SCH (09:00)
[2019-10-10] MEDS ORDERED: Aspirin 81 MG TAB.CHEW PO SCH (09:00)
[2019-10-10] MEDS: Ranolazine 500 MG TAB.ER.12H PO SCH ×2 (09:28→20:06)
[2019-10-10] MEDS: Furosemide 40 MG TABLET PO SCH ×2 (09:28→20:05)
== END 2019-10-10 21:06 | disposition home or self-care (01) ==
LOC: EMEROOARM 04:09 → 2NENU 04:09 → SUATTDRO 05:26 → 2NENU 06:04
PROVIDERS: ADMIT Family Medicine; ATTEND Internal Medicine

== ENCOUNTER 2020-01-26 10:26 | Inpatient (IN) ==
[2020-01-26 10:51] LABS: Basophils # 0.1 K/mcL (0.0-0.2); Basophils % 1.4 %; Eosinophils # 1.4 K/mcL (0.0-0.6); Eosinophils % 17.6 %; Hematocrit 37.9 % (37.5-50.1); Hemoglobin 12.2 g/dL (12.9-16.9); Immature Granulocytes % 0.4 % (0-4); Lymphocytes # 1.1 K/mcL (0.6-4.6); Lymphocytes % 14.2 %; Mean Corpuscular HGB Conc 32.2 g/dL (31.6-35.5); Mean Corpuscular Hemoglobin 29.3 pg (28.0-33.3); Mean Corpuscular Volume 91.1 fL (83.0-100.0); Mean Platelet Volume 9.8 fL (9.4-12.4); Monocytes # 0.8 K/mcL (0.0-1.3); Monocytes % 10.1 %; Neutrophils # 4.4 K/mcL (1.6-8.9); Platelet Count 151 K/mcL (140-400); Red Blood Count 4.16 M/mcL (4.19-5.50); Red Cell Distribution Width 15.8 % (11.5-14.5); Segmented Neutrophils % 56.3 %; White Blood Count 7.9 K/mcL (4.3-11.1)
[2020-01-26] MEDS ORDERED: Dexamethasone 4 MG/ML VIAL IVP ONE (10:58)
[2020-01-26 11:12] LABS: Calcium 8.9 mg/dL (8.6-10.3)
[2020-01-26 11:13] LABS: Troponin I 0.03 ng/mL (< 0.04)
[2020-01-26] MEDS ORDERED: 0.9 % Sodium Chloride 500 ML IVC ONE (12:25)
[2020-01-26] MEDS ORDERED: Azithromycin 500 MG in D5% in Water 250 ML IVPB ONE (12:35)
[2020-01-26] MEDS ORDERED: cefTRIAXone 1,000 MG in 0.9 % Sodium Chloride Mini Bag 100 ML IVPB ONE (12:35)
[2020-01-26] MEDS ORDERED: Ondansetron 4 MG/2 ML VIAL IVP PRN (13:58)
[2020-01-26] MEDS ORDERED: *HR* HYDROcodone/Acet 5/325 mg TABLET PO PRN (13:58)
[2020-01-26] MEDS ORDERED: Acetaminophen 325 MG TABLET PO PRN (13:58)
[2020-01-26] MEDS ORDERED: Naloxone 0.4 MG/ML INJ IVP PRN (13:58)
[2020-01-26] MEDS: Ipratropium/Albuterol Neb 3 ML IH SCH ×3 (15:41→23:47)
[2020-01-26] MEDS: MethylPREDNISolone 40 MG/ML VIAL IVP SCH (16:17)
[2020-01-26] MEDS: *HR* Heparin 5,000 UNIT/ML VIAL SQ SCH (17:42)
[2020-01-26] MEDS: Ranolazine 500 MG TAB.ER.12H PO SCH (20:05)
[2020-01-27] MEDS: MethylPREDNISolone 40 MG/ML VIAL IVP SCH ×2 (01:05→07:57)
[2020-01-27] MEDS: Ipratropium/Albuterol Neb 3 ML IH SCH ×6 (03:12→23:53)
[2020-01-27] MEDS ORDERED: Morphine Sulfate 2 MG/ML SYRINGE IVP ONE (06:00)
[2020-01-27] MEDS: *HR* Heparin 5,000 UNIT/ML VIAL SQ SCH (06:21)
[2020-01-27 06:33] LABS: Basophils % 0.1 %; Hematocrit 36.1 % (37.5-50.1); Hemoglobin 11.7 g/dL (12.9-16.9); Immature Granulocytes % 0.6 % (0-4); Lymphocytes # 0.6 K/mcL (0.6-4.6); Lymphocytes % 8.4 %; Mean Corpuscular HGB Conc 32.4 g/dL (31.6-35.5); Mean Corpuscular Hemoglobin 29.3 pg (28.0-33.3); Mean Corpuscular Volume 90.5 fL (83.0-100.0); Monocytes # 0.3 K/mcL (0.0-1.3); Neutrophils # 5.9 K/mcL (1.6-8.9); Platelet Count 167 K/mcL (140-400); Red Blood Count 3.99 M/mcL (4.19-5.50); Red Cell Distribution Width 15.6 % (11.5-14.5); Segmented Neutrophils % 86.9 %; White Blood Count 6.8 K/mcL (4.3-11.1)
[2020-01-27 06:55] LABS: Calcium 9.3 mg/dL (8.6-10.3); Chol/HDL Ratio 3.3 (0-4.9); Magnesium 2.2 mg/dL (1.6-2.6); Potassium 4.2 mEq/L (3.5-5.1)
[2020-01-27] MEDS: Furosemide 40 MG TABLET PO SCH (07:57)
[2020-01-27] MEDS: Metoprolol XL (24 HR) Succ 25 MG TAB.ER.24H PO SCH (07:57)
[2020-01-27] MEDS: Aspirin Enteric Coated 81 MG Tablet PO SCH (07:57)
[2020-01-27] MEDS: Ranolazine 500 MG TAB.ER.12H PO SCH ×2 (07:57→20:17)
[2020-01-27] MEDS ORDERED: *HR* Heparin 5,000 UNIT/ML VIAL IVP ONE (12:54)
[2020-01-27] MEDS ORDERED: *HR* Heparin 5,000 UNIT/ML VIAL IVP PRN ×2 (12:54)
[2020-01-27] MEDS ORDERED: Aspirin 325 MG TABLET PO ONE (12:56)
[2020-01-27] MEDS: Azithromycin 250 MG TABLET PO SCH (13:36)
[2020-01-27 13:48] LABS: Heparin anti-factor XA UFH 0.05 IU/mL (0.30-0.70)
[2020-01-27 13:51] LABS: Hematocrit 33.6 % (37.5-50.1); Hemoglobin 10.9 g/dL (12.9-16.9); Mean Corpuscular HGB Conc 32.4 g/dL (31.6-35.5); Mean Corpuscular Hemoglobin 29.6 pg (28.0-33.3); Mean Corpuscular Volume 91.3 fL (83.0-100.0); Mean Platelet Volume 10.4 fL (9.4-12.4); Platelet Count 155 K/mcL (140-400); Red Blood Count 3.68 M/mcL (4.19-5.50); Red Cell Distribution Width 15.7 % (11.5-14.5); White Blood Count 9.9 K/mcL (4.3-11.1)
[2020-01-27] MEDS: Heparin 25,000 UNIT/250 ML D5W 25,000 UNIT/250 ML IV.SOLN IVC SCH (13:56)
[2020-01-27] MEDS: Spironolactone 25 MG TABLET PO SCH (16:34)
[2020-01-27] MEDS: lisinopriL 5 MG TABLET PO SCH (17:19)
[2020-01-28 02:46] LABS: Basophils % 0.3 %; Eosinophils % 0.2 %; Hematocrit 31.4 % (37.5-50.1); Hemoglobin 10.2 g/dL (12.9-16.9); Immature Granulocytes % 0.8 % (0-4); Lymphocytes # 1.4 K/mcL (0.6-4.6); Mean Corpuscular HGB Conc 32.5 g/dL (31.6-35.5); Mean Corpuscular Hemoglobin 29.2 pg (28.0-33.3); Mean Platelet Volume 10.4 fL (9.4-12.4); Monocytes # 1.3 K/mcL (0.0-1.3); Monocytes % 11.1 %; Neutrophils # 8.8 K/mcL (1.6-8.9); Platelet Count 156 K/mcL (140-400); Red Blood Count 3.49 M/mcL (4.19-5.50); Red Cell Distribution Width 15.8 % (11.5-14.5); Segmented Neutrophils % 75.6 %; White Blood Count 11.6 K/mcL (4.3-11.1)
[2020-01-28 03:05] LABS: Calcium 8.4 mg/dL (8.6-10.3); Potassium 4.1 mEq/L (3.5-5.1)
[2020-01-28] MEDS: Heparin 25,000 UNIT/250 ML D5W 25,000 UNIT/250 ML IV.SOLN IVC SCH (03:19)
[2020-01-28] MEDS: Ipratropium/Albuterol Neb 3 ML IH SCH ×6 (03:48→23:26)
[2020-01-28] MEDS: Ranolazine 500 MG TAB.ER.12H PO SCH ×2 (08:27→20:12)
[2020-01-28] MEDS: predniSONE 20 MG TABLET PO SCH (08:27)
[2020-01-28] MEDS: Metoprolol XL (24 HR) Succ 25 MG TAB.ER.24H PO SCH (08:27)
[2020-01-28] MEDS: Aspirin Enteric Coated 81 MG Tablet PO SCH (08:27)
[2020-01-28] MEDS: Spironolactone 25 MG TABLET PO SCH (08:28)
[2020-01-28] MEDS: lisinopriL 5 MG TABLET PO SCH (08:28)
[2020-01-28] MEDS: Furosemide 40 MG TABLET PO SCH (08:28)
[2020-01-28] MEDS ORDERED: Perflutren Lipid Microsphere 1.3 ML in 0.9 % Sodium Chloride 8.7 ML IVP ONE (10:24)
[2020-01-28] MEDS: Azithromycin 250 MG TABLET PO SCH (13:12)
[2020-01-29 02:11] LABS: Basophils % 0.2 %; Hematocrit 33.9 % (37.5-50.1); Hemoglobin 10.9 g/dL (12.9-16.9); Immature Granulocytes % 0.8 % (0-4); Lymphocytes # 0.9 K/mcL (0.6-4.6); Lymphocytes % 9.7 %; Mean Corpuscular HGB Conc 32.2 g/dL (31.6-35.5); Mean Corpuscular Hemoglobin 29.5 pg (28.0-33.3); Mean Corpuscular Volume 91.6 fL (83.0-100.0); Mean Platelet Volume 10.2 fL (9.4-12.4); Monocytes # 0.6 K/mcL (0.0-1.3); Monocytes % 6.3 %; Neutrophils # 7.7 K/mcL (1.6-8.9); Platelet Count 168 K/mcL (140-400); Red Cell Distribution Width 15.6 % (11.5-14.5); White Blood Count 9.2 K/mcL (4.3-11.1)
[2020-01-29] MEDS: Ipratropium/Albuterol Neb 3 ML IH SCH ×3 (03:31→11:07)
[2020-01-29] MEDS: Metoprolol XL (24 HR) Succ 25 MG TAB.ER.24H PO SCH (09:57)
[2020-01-29] MEDS: Ranolazine 500 MG TAB.ER.12H PO SCH (09:58)
[2020-01-29] MEDS: Spironolactone 25 MG TABLET PO SCH (09:58)
[2020-01-29] MEDS: Furosemide 40 MG TABLET PO SCH (09:58)
[2020-01-29] MEDS: Aspirin Enteric Coated 81 MG Tablet PO SCH (09:58)
[2020-01-29] MEDS: predniSONE 20 MG TABLET PO SCH (09:58)
[2020-01-29 10:15] VITALS: BP 126/82
== END 2020-01-29 14:51 | disposition home or self-care (01) | DRG 190 ==
LOC: 3ANU 10:26 → EMEROOARM 10:26 → SUATTDRO 12:49 → 3ANU 14:43
PROVIDERS: ADMIT Pharmacist; ATTEND Internal Medicine